=== PATIENT | female | born 1960 | race Caucasian/White ===

== ENCOUNTER → 2018-02-25 08:54 | Outpatient (CLI) | payer MEDICARE, OTHER, SELFPAY ==
[2018-02-25 09:09] LABS: Absolute Lymphocyte Count 2.48 X10^3/ul (0.83-4.51); Absolute Neutrophil Count 5.1 X10^3/uL (2.0-7.7); Basophil# 0.02 X10^3/uL; Basophil% 0.2 % (0-1); Eosinophils% 1.2 % (0-5); Hematocrit 39.1 % (37-47); Hemoglobin 12.2 g/dl (12.0-15.0); Lymphocyte # 2.48 X10^3/ul (4.0); Lymphocyte % 29.6 % (19-41); Mean Corp Hgb Conc 31.2 g/gl (32-36); Mean Corpuscular Hgb 24.3 pg (27.0-32.0); Mean Corpuscular Volume 77.7 fL (81-99); Mean Platelet Vol. 9.9 fl (6.2-12.0); Monocyte# 0.63 X10^3/uL; Monocyte% 7.5 % (0-10); Neutrophil # 5.14 X10^3/uL (2.7-7.7); Neutrophil % 61.4 % (47-70); Platelet Count 261 K/mm3 (150-450); RBC Distribution Width SD 45.2 fl (35.1-43.9); Red Blood Count 5.03 M/mm3 (4.2-5.4); White Blood Count 8.4 K/mm3 (4.4-11.0)
--- NOTE | 2018-02-25 09:12 | CT_ITS ---
STUDY: CT ABDOMEN AND PELVIS WITHOUT CONTRAST REASON FOR EXAM: Female, 57 years old. Pain. RADIATION DOSAGE (If Supplied By Facility): CTDIvol = ( 13.73 ) mGy, DLP = ( 737.25 ) mGycm TECHNIQUE: Transaxial images were obtained from the dome of the diaphragm to the symphysis pubis without oral contrast, and without intravenous contrast. Sagittal and coronal images were reconstructed. Individualized dose optimization techniques were used for this CT. COMPARISON: None. FINDINGS: The visualized lung bases are unremarkable. The visualized portions of the heart are within normal limits. There is decreased attenuation of the liver consistent with steatosis. Normal gallbladder and extrahepatic biliary system. Normal spleen. Normal pancreas. Normal bilateral adrenal glands. Normal right kidney. Normal left kidney. Evaluation of the GI tract is limited by absence of oral contrast. Cannot exclude stomach wall thickening. No dilated loops of bowel or evidence for obstruction. Cannot exclude segmental thickening of the pereyra of the small or large bowel. Cannot exclude enteritis or colitis. Moderate diffuse fecal retention. Appendix within normal limits. Normal abdominal aorta. There is an IVC filter in place. Normal retroperitoneum. Normal urinary bladder. There is absence of the uterus consistent with a prior hysterectomy. There is a small umbilical hernia containing fat. Previously repaired right inguinal hernia and ventral hernia with mesh. No recurrent hernias seen in these areas. Normal osseous structures. CT/Abdomen/Pelvis without Cont IMPRESSION: There are no acute abnormalities seen. Electronically Signed: Manish Nassar MD at 10:30 EDT , Service support ,
[2018-02-25 09:13] LABS: POSITIVE COUNT NO; POSITIVE DIFFERENTIAL NO; POSITIVE MORPHOLOGY NO
[2018-02-25 09:26] LABS: AST(SGOT) 30 U/L (15-37); Alanine Aminotransfer ALT/SGPT 40 U/L (13-56); Albumin, Serum 3.8 g/dL (3.2-5.0); Alkaline Phosphatase 133 U/L (45-117); Anion Gap 10 (5-15); BUN 10 mg/dL (7-18); BUN/Creat Ratio 19.9 RATIO (10-20); CRP 6.57 mg/L (0.0-3.0); Calcium,Total 8.7 mg/dL (8.5-10.1); Chloride 103 mmol/L (98-107); EST Glomerular Filtration Rate 135 mL/min (>60); Est Glom Filt Rate - Afr Amer 164 mL/min (>60); Globulin 3.7 g/dL (2.2-4.2); Glucose 128 mg/dL (74-106); Lipase 114 U/L (73-393); Potassium 3.7 mmol/L (3.5-5.1); Protein, Total 7.5 g/dL (6.4-8.2); Sodium Level 141 mmol/L (136-145)
== END ==
PROVIDERS: Family Provider Family Medicine; PCP Family Medicine; Visit Provider Family Medicine
DX: R10.9 Unspecified abdominal pain (principal)
CPT/HCPCS: 36415; 74176; 80053; 83690; 85025; 86140

== ENCOUNTER → 2018-07-27 11:48 | Outpatient (CLI) | payer MEDICARE, OTHER, SELFPAY ==
[2018-07-27 13:59] LABS: Absolute Lymphocyte Count 2.26 X10^3/ul (0.83-4.51); Absolute Neutrophil Count 3.9 X10^3/uL (2.0-7.7); Basophil# 0.03 X10^3/uL; Basophil% 0.4 % (0-1); Eosinophil# 0.12 X10^3/uL; Eosinophils% 1.7 % (0-5); Hematocrit 40.3 % (37-47); Hemoglobin 12.2 g/dl (12.0-15.0); Lymphocyte # 2.26 X10^3/ul (4.0); Lymphocyte % 32.8 % (19-41); Mean Corp Hgb Conc 30.3 g/gl (32-36); Mean Corpuscular Hgb 24.1 pg (27.0-32.0); Mean Corpuscular Volume 79.5 fL (81-99); Mean Platelet Vol. 10.9 fl (6.2-12.0); Monocyte# 0.59 X10^3/uL; Monocyte% 8.6 % (0-10); Neutrophil # 3.88 X10^3/uL (2.7-7.7); Neutrophil % 56.4 % (47-70); Platelet Count 284 K/mm3 (150-450); RBC Distribution Width CV 17.5 % (11.6-14.6); RBC Distribution Width SD 50.4 fl (35.1-43.9); Red Blood Count 5.07 M/mm3 (4.2-5.4); White Blood Count 6.9 K/mm3 (4.4-11.0)
[2018-07-27 14:08] LABS: POSITIVE COUNT NO; POSITIVE DIFFERENTIAL NO; POSITIVE MORPHOLOGY NO
[2018-07-27 14:18] LABS: Hemoglobin A1c 7.7 % (4.2-6.3)
[2018-07-27 14:22] LABS: Creatinine, Urine (random) < 13.00 mg/dL (NO RANGE EST.); Microalbumin,Random Urine 18.2 mg/L (NO RANGE EST.)
[2018-07-27 14:23] LABS: AST(SGOT) 29 U/L (15-37); Alanine Aminotransfer ALT/SGPT 39 U/L (13-56); Albumin, Serum 3.7 g/dL (3.2-5.0); Alkaline Phosphatase 144 U/L (45-117); Anion Gap 12 (5-15); BUN 8 mg/dL (7-18); BUN/Creat Ratio 15.8 RATIO (10-20); Calcium,Total 8.8 mg/dL (8.5-10.1); Chloride 103 mmol/L (98-107); Creatinine, Serum 0.51 mg/dL (0.55-1.02); EST Glomerular Filtration Rate 134 mL/min (>60); Est Glom Filt Rate - Afr Amer 162 mL/min (>60); Globulin 3.7 g/dL (2.2-4.2); Glucose 150 mg/dL (74-106); Potassium 3.6 mmol/L (3.5-5.1); Protein, Total 7.4 g/dL (6.4-8.2); Sodium Level 143 mmol/L (136-145)
== END ==
PROVIDERS: Family Provider Family Medicine; PCP Family Medicine; Referring Provider Family Medicine; Visit Provider Family Medicine
DX: E11.22 Type 2 diabetes mellitus with diabetic chronic kidney disease (principal); N18.9 Chronic kidney disease, unspecified; R74.0 Nonspecific elevation of levels of transaminase and lactic acid dehydrogenase [LDH]; I66.9 Occlusion and stenosis of unspecified cerebral artery
CPT/HCPCS: 36415; 80053; 82043; 82570; 83036; 84443; 85025

== ENCOUNTER → 2018-07-31 07:31 | Outpatient (CLI) | payer MEDICARE, OTHER, SELFPAY ==
--- NOTE | 2018-07-31 07:37 | BI_ITS ---
MAMMOGRAPHY - BILATERAL SCREENING REASON FOR EXAM: Female, 57 years old. Routine annual screening examination. PERTINENT HISTORY: Non-contributory. TECHNIQUE: Digital bilateral breast brandon (3D mammographic acquisition) in the CC and MLO projections. 2-D mediolateral oblique (MLO) and craniocaudad (CC) views of both breasts were obtained. CAD: Full Field Digital Mammography with Computer Added Detection was performed. COMPARISON: Comparison is made with prior study dated August 12, 2012 and August 01, 2011. FINDINGS: Breast Composition: The breasts are almost entirely fatty. There are no dominant masses or suspicious calcifications. Stable small benign-appearing bilateral axillary lymph nodes. No other significant abnormalities are identified. There has been no significant change since the prior study. BI/SCREENING MAMM (CAD), BILAT IMPRESSION: Stable bilateral screening mammogram. Yearly follow-up mammogram recommended. (A) ASSESSMENT CATEGORY: BIRADS Category 2: Benign. A letter regarding these results will be sent to the patient by the facility within 30 days. Approximately 10% of breast cancers are not detected by mammography. A normal mammogram should not delay biopsy of a clinically suspicious abnormality. [id number] Electronically Signed: Wesley Wetzel MD at 14:23 EST Tel [phone], Service support ,
== END ==
PROVIDERS: Family Provider Family Medicine; PCP Family Medicine; Visit Provider Family Medicine
DX: Z12.31 Encounter for screening mammogram for malignant neoplasm of breast (principal)
CPT/HCPCS: 77063; 77067

== ENCOUNTER 2018-09-24 11:46 | Emergency (ER) | payer MEDICARE, SELFPAY ==
[2018-09-24 11:47] VITALS: BP 142/83; PULSE 75; RESP 18; TEMP 36.6; O2SAT 98; BMI 32.3
--- NOTE | 2018-09-24 12:11 | ED.VISSUMM ---
- ER Visit Summary Date of Service: 09/24/18 Chief Complaint: Back pain History of Present Illness: The patient is a 57 F right lower back pain for the past couple weeks. Symptoms started after swinging a bat with grandkids while in [place]. Saw emergency department at that time. He was given morphine, Toradol, Kenalog. 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 Patient diabetic with sugars controlled in the 90s-120s. Pain worse with movement. Got back a week ago. Has had previous similar symptoms in the past. Was previously gabapentin for fibromyalgia. Currently on MS Contin and breakthrough oxycodone. States symptoms not helping with that. Has tolerated Valium in the past. No pain down the legs. No loss of bowel or bladder control. Physical Examination: General: Alert and oriented ?3, mild distress HEENT: Normocephalic, atraumatic. Moist mucosa membranes Neck: supple, nontender. Cardiovascular: Regular rate and rhythm, no murmurs Respiratory: Normal breath sounds, symmetric, no distress Abdomen: Soft, nontender, nondistended Back: No midline tenderness tender palpation along right flank region, no ecchymosis or rash. Extremities: Nontender, no edema, pulses intact ?4 Neuro: no focal neurological deficits. Test Results: Lumbar spine x-ray: Degenerative changes. Labs: White count 7.6, hemoglobin 11.5, creatinine 0.47, lipase 181, liver enzymes normal. INR 2.8. CT abdomen pelvis: Distended bladder, normal appendix, linear density distal small bowels per radiology. Emergency Department Course and Treatment: Patient initial evaluation history concerns for muscle skeletal strain. She is on warfarin therefore NSAIDs held. History of morphine subcu along with Valium, x-ray ordered for baseline due to persistent symptoms for 2 weeks. No degenerative changes. Upon returning from x-ray she states symptoms worsen notes from the back to the abdomen she has slight right lower quadrant tenderness. With her being on warfarin with sudden onset of symptoms further workup with labs and image studies. Given additional IV morphine. Symptoms improved. Labs were stable INR 2.8. Results of CT scan notes a normal appendix, distended bladder however she urinated after CT and felt symptoms improved. There is a linear density in small bowels per radiology, she did receive oral Valium in the department. She is able to ambulate in the department by nursing to the restroom with no difficulties. She is able to get herself up out of bed. I did speak with patient's PCP on her arrival, aware of her condition, he is treating her pain in the interim until she is established with pain management. She is on MS Contin and oxycodone. We will add Valium to her regimen, will try a Medrol Dosepak which she is tolerated in the past, she will monitor her blood sugars. She will follow-up as an outpatient. Treatment Plan: [] Disposition: Discharge Impression: 1. Acute lumbar strain 2. Nonspecific abdominal pain This note was generated with [employer] dictation software. It may contain incorrect words, spelling, and punctuation that were not noted in review of the chart prior to signing ED Disposition - Plan for ED Patient: Disposition: Home or Assisted Living Chief Complaint: Back Diagnosis: Lumbar strain, Abdominal pain Instructions: ED Sprain Strain Lumbar, Abdominal Pain Prescriptions: Diazepam [Valium] 5 mg PO Q8 PRN #12 tablet PRN Reason: Muscle Spasm MethylPREDNISolone DosePak [Medrol DosePak] 4 mg PO UD #1 box Referrals: Jermaine Miranda MD [Primary Care Provider] - 3-5 Days
[2018-09-24] MEDS: morphine 10 MG/ML Syringe SC (12:20)
[2018-09-24] MEDS: diazePAM 5 MG Tablet PO (12:20)
--- NOTE | 2018-09-24 12:35 | RAD_ITS ---
STUDY: X-RAY - LUMBAR SPINE REASON FOR EXAM: Female, 57 years old. Low back pain TECHNIQUE: 3 view(s) of the lumbar spine were obtained. COMPARISON: None FINDINGS: Normal lumbar lordosis. There is no substantial scoliosis. There is a normal alignment of the vertebrae. There is multilevel endplate spondylosis of the lumbar vertebrae. There is multi-level degenerative disc disease with multi-level disc space narrowing. There is no demonstrated fracture. IVC filter is noted The soft tissue structures are unremarkable. RAD/Lumbar Spine 2 or 3 Views IMPRESSION: Mild degenerative changes. No acute findings. Electronically Signed: Rohan Dawson DO at 13:15 EST Tel , Service support ,
[2018-09-24 13:01] LABS: Bedside Glucose 193 mg/dL (70-110)
--- NOTE | 2018-09-24 13:14 | ED.RN ---
SPOKE WITH MD REGARDING PAIN, NO NEW ORDERS GIVEN.
--- NOTE | 2018-09-24 13:21 | CT_ITS ---
STUDY: CT ABDOMEN AND PELVIS WITHOUT CONTRAST REASON FOR EXAM: Female, 57 years old. Back pain and abdominal pain RADIATION DOSAGE (If Supplied By Facility): CTDIvol = ( 14.51 ) mGy, DLP = ( 739.76 ) mGycm TECHNIQUE: Transaxial images were obtained from the dome of the diaphragm to the symphysis pubis without oral contrast, and without intravenous contrast. Sagittal and coronal images were reconstructed. Individualized dose optimization techniques were used for this CT. COMPARISON: 02/25/2018 FINDINGS: The visualized lung bases are unremarkable. The visualized portions of the heart are within normal limits. There is hepatomegaly with diffuse hepatic enlargement. Normal gallbladder and extrahepatic biliary system. Normal spleen. There is diffuse atrophy of the pancreas. Normal bilateral adrenal glands. There is mild bilateral pelviectasis; right greater than left. There is no evidence of stones. There is prominent distention of the bladder. Possible urinary retention. Kidneys are otherwise within normal limits. Normal visualized stomach. Normal small intestine. Normal colon. The appendix is visualized and appears normal. Within the distal loops of small bowel, there is a linear mildly hyperdense object measuring 1.3 cm. Unsure if this represents a tablet the patient has ingested versus foreign body. Normal abdominal aorta. There is an IVC filter in place. Normal retroperitoneum. Normal urinary bladder. There is absence of the uterus consistent with a prior hysterectomy. Normal abdominal wall. There are diffuse degenerative changes of the visualized lumbar spine. CT/Abdomen/Pelvis without Cont IMPRESSION: Mild bilateral pelviectasis; right greater than left. No evidence of stones in the ureter. No evidence of stones in the bladder. However, the bladder is prominently distended. I service represents urinary retention. Recommend clinical correlation Linear hyperdense object in the distal loops of small bowel. Unsure if this represents an ingested tablet versus foreign body. Recommend clinical correlation. Electronically Signed: Rohan Dawson DO at 14:49 EST Tel , Service support ,
[2018-09-24 13:59] LABS: Absolute Lymphocyte Count 1.25 X10^3/ul (0.83-4.51); Absolute Neutrophil Count 5.7 X10^3/uL (2.0-7.7); Basophil# 0.02 X10^3/uL; Basophil% 0.3 % (0-1); Eosinophil# 0.08 X10^3/uL; Hematocrit 37.4 % (37-47); Hemoglobin 11.5 g/dl (12.0-15.0); Lymphocyte # 1.25 X10^3/ul (4.0); Lymphocyte % 16.4 % (19-41); Mean Corp Hgb Conc 30.7 g/gl (32-36); Mean Corpuscular Hgb 24.2 pg (27.0-32.0); Mean Corpuscular Volume 78.6 fL (81-99); Monocyte# 0.54 X10^3/uL; Monocyte% 7.1 % (0-10); Neutrophil # 5.73 X10^3/uL (2.7-7.7); Neutrophil % 75.1 % (47-70); POSITIVE COUNT NO; POSITIVE DIFFERENTIAL NO; POSITIVE MORPHOLOGY NO; Platelet Count 224 K/mm3 (150-450); RBC Distribution Width CV 15.9 % (11.6-14.6); RBC Distribution Width SD 45.3 fl (35.1-43.9); Red Blood Count 4.76 M/mm3 (4.2-5.4); White Blood Count 7.6 K/mm3 (4.4-11.0)
[2018-09-24] MEDS: Morphine 4 MG/ML Syringe IV (13:59)
[2018-09-24] MEDS: 0.9% Normal Saline 1,000 ML 125 ML IV (13:59)
[2018-09-24] MEDS: Ondansetron 4 MG/2 ML Vial IV (14:00)
[2018-09-24 14:05] LABS: International Normalized Ratio 2.8; Prothrombin Time (Protime)PT. 29.3 SECONDS (11.7-14.9)
[2018-09-24 14:06] LABS: Partial Thromboplast Time 47.6 Seconds (24.1-36.2)
[2018-09-24 14:15] LABS: ALB/GLOB Ratio 0.9 RATIO (0.9-2.4); AST(SGOT) 19 U/L (15-37); Alanine Aminotransfer ALT/SGPT 31 U/L (13-56); Albumin, Serum 3.3 g/dL (3.2-5.0); Alkaline Phosphatase 138 U/L (45-117); Anion Gap 10 (5-15); BUN 9 mg/dL (7-18); Calcium,Total 9.1 mg/dL (8.5-10.1); Chloride 106 mmol/L (98-107); Creatinine, Serum 0.47 mg/dL (0.55-1.02); EST Glomerular Filtration Rate 144 mL/min (>60); Est Glom Filt Rate - Afr Amer 175 mL/min (>60); Estimated Creatinine Clearance 126.61 ml/min; Globulin 3.8 g/dL (2.2-4.2); Glucose 170 mg/dL (74-106); Lipase 181 U/L (73-393); Potassium 3.7 mmol/L (3.5-5.1); Protein, Total 7.1 g/dL (6.4-8.2); Sodium Level 144 mmol/L (136-145)
[2018-09-24 15:18] VITALS: BP 153/90; PULSE 65; RESP 16; O2SAT 94
== END 2018-09-24 15:19 | disposition home or self-care (01) ==
PROVIDERS: Emergency Provider Emergency Medicine; Family Provider Family Medicine; PCP Family Medicine
DX: S39.012D Strain of muscle, fascia and tendon of lower back, subsequent encounter (principal); R10.31 Right lower quadrant pain; E11.9 Type 2 diabetes mellitus without complications; E72.12 Methylenetetrahydrofolate reductase deficiency; Z86.711 Personal history of pulmonary embolism; Z79.01 Long term (current) use of anticoagulants; Z79.891 Long term (current) use of opiate analgesic; X50.0XXD Overexertion from strenuous movement or load, subsequent encounter
CPT/HCPCS: 72100; 74176; 80053; 82962; 83690; 85025; 85610; 85730; 96361; 96372; 96374; 96375; 99284; J7030; A4216; J2405

== ENCOUNTER → 2018-11-04 11:49 | Outpatient (CLI) | payer MEDICARE, SELFPAY ==
[2018-11-04 14:15] LABS: Prothrombin Time (Protime)PT. 13.6 SECONDS (11.7-14.9)
[2018-11-04 14:28] LABS: Hemoglobin A1c 7.8 % (4.2-6.3)
[2018-11-04 14:32] LABS: Vitamin D,25 Hydroxy 22.1 ng/mL (29.95-100.01)
[2018-11-04 14:33] LABS: ALB/GLOB Ratio 1.1 RATIO (0.9-2.4); AST(SGOT) 23 U/L (15-37); Alanine Aminotransfer ALT/SGPT 30 U/L (13-56); Albumin, Serum 3.9 g/dL (3.2-5.0); Alkaline Phosphatase 119 U/L (45-117); Anion Gap 12 (5-15); BUN 8 mg/dL (7-18); BUN/Creat Ratio 15.4 RATIO (10-20); Calcium,Total 9.4 mg/dL (8.5-10.1); Chloride 107 mmol/L (98-107); Creatinine, Serum 0.52 mg/dL (0.55-1.02); EST Glomerular Filtration Rate 129 mL/min (>60); Est Glom Filt Rate - Afr Amer 157 mL/min (>60); Globulin 3.6 g/dL (2.2-4.2); Glucose 135 mg/dL (74-106); Potassium 3.8 mmol/L (3.5-5.1); Protein, Total 7.5 g/dL (6.4-8.2); Sodium Level 145 mmol/L (136-145)
[2018-11-04 14:49] LABS: PTHIN 28.9 pg/mL (18.4-80.1)
== END ==
PROVIDERS: Family Provider Family Medicine; PCP Family Medicine; Referring Provider Family Medicine; Visit Provider Family Medicine
DX: R74.8 Abnormal levels of other serum enzymes (principal); E11.22 Type 2 diabetes mellitus with diabetic chronic kidney disease; N18.9 Chronic kidney disease, unspecified; I66.9 Occlusion and stenosis of unspecified cerebral artery
CPT/HCPCS: 80053; 82306; 83036; 83970; 85610

== ENCOUNTER → 2018-11-19 12:03 | Outpatient (CLI) | payer MEDICARE, SELFPAY ==
--- NOTE | 2018-11-19 12:07 | RAD_ITS ---
STUDY: X-RAY - THORACIC SPINE REASON FOR EXAM: Female, 58 years old. No recent injury. Pain in the cervical and thoracic spine. Frequent headaches. TECHNIQUE: Frontal and lateral view(s) of the thoracic spine were obtained. COMPARISON: None. FINDINGS: Mild osteopenia. Slight scoliosis of the thoracic spine, mild dextroscoliotic curvature, Mcnally angle approximately 2 degrees. Normal kyphosis. Normal vertebral body height and alignment. No significant disc degenerative features. Evaluated ribs unremarkable. Clear lungs, normal cardiac mediastinal silhouette. Cholecystectomy. RAD/Thoracic Spine 3 Views IMPRESSION: Slight scoliosis. No significant spondylosis. Electronically Signed: Mark Lemon MD at 18:08 EST Tel , Service support ,
--- NOTE | 2018-11-19 12:10 | RAD_ITS ---
STUDY: X-RAY - CERVICAL SPINE REASON FOR EXAM: Female, 58 years old. No recent injury. Pain in the cervical and thoracic spine. Frequent headaches. TECHNIQUE: view(s) of the cervical spine were obtained. COMPARISON: None FINDINGS: Normal anterior atlantoaxial articulation. Normal odontoid process. Normal cervical lordosis. Normal vertebral bodies and endplates. Normal disc space heights. Normal visualized intervertebral neuroforamina. The soft tissue structures are unremarkable. RAD/Cerv Spine 4 or 5 Views IMPRESSION: Normal x-ray examination of the visualized cervical spine. Electronically Signed: Mark Lemon MD at 18:09 EST Tel , Service support ,
== END ==
PROVIDERS: Family Provider Family Medicine; PCP Family Medicine; Referring Provider Nurse Practitioner Family; Visit Provider Nurse Practitioner Family
DX: M54.2 Cervicalgia (principal); M54.6 Pain in thoracic spine
CPT/HCPCS: 72050; 72072

== ENCOUNTER → 2019-02-09 | Outpatient (CLI) | payer MEDICARE, SELFPAY ==
--- NOTE | 2019-02-09 15:18 | RAD_ITS ---
STUDY: X-RAY - RIGHT RADIUS AND ULNA REASON FOR EXAM: Female, 58 years old. Pain x6 months TECHNIQUE: 2 view(s) of the forearm. COMPARISON: None. FINDINGS: There is no demonstrated soft tissue swelling. Normal visualized radius. Normal visualized ulna. RAD/Forearm 2 Views IMPRESSION: Normal x-ray examination of the radius and ulna. Electronically Signed: Bud Watkins MD at 15:31 EDT , Service support ,
== END | disposition home or self-care (01) ==
LOC: MTRAD 15:15
PROVIDERS: Family Provider Family Medicine; PCP Family Medicine; Referring Provider Family Medicine; Visit Provider Family Medicine
DX: M89.8X3 Other specified disorders of bone, forearm (principal)
CPT/HCPCS: 73090

== ENCOUNTER → 2019-02-24 | Outpatient (CLI) | payer MEDICARE, SELFPAY ==
--- NOTE | 2019-02-24 09:48 | CT_ITS ---
STUDY: CT BRAIN WITHOUT CONTRAST REASON FOR EXAM: Female, 58 years old. Positive Romberg test. RADIATION DOSAGE (If Supplied By Facility): CTDIvol = ( 60.81 ) mGy, DLP = ( 1089.89 ) mGycm TECHNIQUE: Transaxial CT imaging of the brain was performed without administration of intravenous contrast material. Individualized dose optimization techniques were used for this CT. COMPARISON: Comparison is made with prior study dated January 12, 2015. FINDINGS: Normal soft tissue structures. Normal calvarium. There is mild cerebral atrophy with widening of the extra-axial spaces and ventricular dilatation. Normal white matter tracts of the cerebral hemispheres. Normal basal ganglia and thalami. Normal brainstem. Normal cerebellum. There is no intracranial hemorrhage. There are no findings of an acute ischemic infarction. Normal visualized paranasal sinuses. CT/Brain/Head without Contrast IMPRESSION: Mild involutional changes of the brain. Electronically Signed: Wesley Wetzel, at 10:24 EDT , Service support ,
== END | disposition home or self-care (01) ==
PROVIDERS: Family Provider Family Medicine; PCP Family Medicine; Referring Provider Family Medicine; Visit Provider Family Medicine
DX: R29.818 Other symptoms and signs involving the nervous system (principal)
CPT/HCPCS: 70450

== ENCOUNTER → 2019-03-01 | Outpatient (CLI) | payer MEDICARE, SELFPAY ==
[2019-03-01 14:22] LABS: Absolute Lymphocyte Count 1.94 X10^3/ul (0.83-4.51); Absolute Neutrophil Count 3.8 X10^3/uL (2.0-7.7); Basophil# 0.02 X10^3/uL; Basophil% 0.3 % (0-1); Eosinophils% 1.6 % (0-5); Hematocrit 39.1 % (37-47); Lymphocyte # 1.94 X10^3/ul (4.0); Lymphocyte % 30.6 % (19-41); Mean Corp Hgb Conc 30.7 g/gl (32-36); Mean Corpuscular Hgb 23.5 pg (27.0-32.0); Mean Corpuscular Volume 76.5 fL (81-99); Monocyte# 0.51 X10^3/uL; Neutrophil # 3.76 X10^3/uL (2.7-7.7); Neutrophil % 59.2 % (47-70); Platelet Count 270 K/mm3 (150-450); RBC Distribution Width CV 16.7 % (11.6-14.6); RBC Distribution Width SD 45.2 fl (35.1-43.9); Red Blood Count 5.11 M/mm3 (4.2-5.4); White Blood Count 6.4 K/mm3 (4.4-11.0)
[2019-03-01 14:37] LABS: POSITIVE COUNT NO; POSITIVE DIFFERENTIAL NO; POSITIVE MORPHOLOGY NO
== END | disposition home or self-care (01) ==
LOC: MTLAB 12:35
PROVIDERS: Family Provider Family Medicine; PCP Family Medicine; Referring Provider Family Medicine; Visit Provider Family Medicine
DX: I10 Essential (primary) hypertension (principal); T14.8XXA Other injury of unspecified body region, initial encounter; W57.XXXA Bitten or stung by nonvenomous insect and other nonvenomous arthropods, initial encounter
CPT/HCPCS: 36415; 85025; 86617

== ENCOUNTER → 2019-03-02 | Outpatient (CLI) | payer MEDICARE, SELFPAY ==
[2019-03-02 12:21] LABS: International Normalized Ratio 1.1; Prothrombin Time (Protime)PT. 13.8 SECONDS (11.7-14.9)
== END | disposition home or self-care (01) ==
PROVIDERS: Family Provider Family Medicine; PCP Family Medicine; Referring Provider Anesthesiology Pain Medicine; Visit Provider Anesthesiology Pain Medicine
DX: Z01.812 Encounter for preprocedural laboratory examination (principal); Z79.01 Long term (current) use of anticoagulants
CPT/HCPCS: 36415; 85610

== ENCOUNTER → 2019-08-09 09:31 | Outpatient (CLI) | payer MEDICARE, SELFPAY ==
[2019-08-09 10:55] LABS: Hematocrit 42.4 % (37-47); Hemoglobin 13.2 g/dL (12.0-15.0); Mean Corp Hgb Conc 31.1 g/dL (32-36); Mean Corpuscular Hgb 25.3 pg (27.0-32.0); Mean Corpuscular Volume 81.4 fL (81-99); Mean Platelet Vol. 10.4 fl (6.2-12.0); Platelet Count 260 K/mm3 (150-450); RBC Distribution Width CV 16.9 % (11.6-14.6); RBC Distribution Width SD 49.2 fl (35.1-43.9); Red Blood Count 5.21 M/mm3 (4.2-5.4); White Blood Count 5.5 K/mm3 (4.4-11.0)
[2019-08-09 11:10] LABS: Hemoglobin A1c 6.6 % (4.2-6.3); Microalbumin:Creatinine Ratio 60.8 mg/g CRE (<30 mg/g CRE)
[2019-08-09 11:29] LABS: ALB/GLOB Ratio 1.2 RATIO (0.9-2.4); AST(SGOT) 20 U/L (15-37); Alanine Aminotransfer ALT/SGPT 25 U/L (13-56); Alkaline Phosphatase 105 U/L (45-117); Anion Gap 5 (5-15); BUN 7 mg/dL (7-18); BUN/Creat Ratio 15.5 RATIO (10-20); Calcium,Total 9.4 mg/dL (8.5-10.1); Chloride 107 mmol/L (98-107); Creatinine, Serum 0.45 mg/dL (0.55-1.02); EST Glomerular Filtration Rate 152 mL/min (>60); Est Glom Filt Rate - Afr Amer 184 mL/min (>60); Globulin 3.3 g/dL (2.2-4.2); Glucose 124 mg/dL (74-106); Protein, Total 7.3 g/dL (6.4-8.2); Sodium Level 142 mmol/L (136-145); Thyroid Stim Hormone (TSH) 1.04 uIU/mL (0.358-3.74)
== END ==
PROVIDERS: Family Provider Family Medicine; PCP Family Medicine; Referring Provider Family Medicine; Visit Provider Family Medicine
DX: E11.22 Type 2 diabetes mellitus with diabetic chronic kidney disease (principal)
CPT/HCPCS: 36415; 80053; 82043; 82570; 83036; 84443; 85027

== ENCOUNTER → 2019-09-02 09:35 | Outpatient (CLI) | payer MEDICARE, SELFPAY ==
--- NOTE | 2019-09-02 09:38 | US_ITS ---
STUDY: ABDOMINAL ULTRASOUND - RIGHT UPPER QUADRANT REASON FOR VISIT: Female, 58 years old NAUSEA/ DM TYPE 2 TECHNIQUE: Ultrasound evaluation of the right upper quadrant was performed with real-time and static hernandez-scale imaging. TECHNICAL QUALITY: Adequate. COMPARISON: None. FINDINGS: Liver: The liver measures 16.5 cm. There is normal echogenicity of the liver. The bile ducts are within normal limits. There is hepatic color flow. The direction of portal flow is hepatopetal. There is no demonstrated mass lesion. Gallbladder: Normal distended gallbladder. The gallbladder wall measures 3.0 mm. There is a negative sonographic Cisse''s sign. There is no pericholecystic fluid. There are no gallstones. Common Bile Duct (C.B.D.): The common bile duct measures 5.0 mm. Pancreas: Normal size of the head, body of the pancreas. The tail portion is obscured due to overlying bowel gas. There is normal echogenicity of the pancreas. There is no demonstrated pancreatic mass or cyst. Right Kidney: Normal size of the right kidney. The right kidney measures 11.6 cm x 5.3 cm x 4.5 cm. Normal renal cortex. The right cortex measures 1.5 cm. There is no demonstrated renal mass or cyst. There is no right hydronephrosis. US/Abdomen Limited IMPRESSION: Normal right upper quadrant ultrasound examination. Electronically Signed: Wesley Wetzel, at 15:11 EST , Service support ,
== END ==
PROVIDERS: Family Provider Family Medicine; PCP Family Medicine; Referring Provider Internal Medicine Gastroenterology; Visit Provider Internal Medicine Gastroenterology
DX: E11.9 Type 2 diabetes mellitus without complications (principal); R11.0 Nausea
CPT/HCPCS: 76705

== ENCOUNTER → 2020-02-17 | Outpatient (CLI) | payer MEDICARE, SELFPAY ==
[2020-02-17 12:31] LABS: Absolute Lymphocyte Count 1.39 X10^3/uL (0.83-4.51); Absolute Neutrophil Count 3.4 X10^3/uL (2.0-7.7); Basophil# 0.02 X10^3/uL; Basophil% 0.4 % (0-1); Eosinophils% 1.9 % (0-5); Hematocrit 40.7 % (37-47); Lymphocyte # 1.39 X10^3/ul (4.0); Lymphocyte % 26.2 % (19-41); Mean Corp Hgb Conc 31.9 g/dL (32-36); Mean Corpuscular Hgb 27.7 pg (27.0-32.0); Mean Corpuscular Volume 86.6 fL (81-99); Mean Platelet Vol. 11.1 fl (6.2-12.0); Monocyte# 0.36 X10^3/uL; Monocyte% 6.8 % (0-10); NRBC Flagged by Analyzer 0 % (0-5); Neutrophil # 3.42 X10^3/uL (2.7-7.7); Neutrophil % 64.5 % (47-70); Platelet Count 276 K/mm3 (150-450); RBC Distribution Width SD 44.3 fl (35.1-43.9); White Blood Count 5.3 K/mm3 (4.4-11.0)
[2020-02-17 13:14] LABS: Microalbumin,Random Urine 13.1 mg/L (NO RANGE EST.); Microalbumin:Creatinine Ratio 47.1 mg/g CRE (<30 mg/g CRE)
[2020-02-17 13:22] LABS: ALB/GLOB Ratio 1.2 RATIO (0.9-2.4); AST(SGOT) 20 U/L (15-37); Alanine Aminotransfer ALT/SGPT 25 U/L (13-56); Albumin, Serum 3.9 g/dL (3.2-5.0); Alkaline Phosphatase 132 U/L (45-117); Anion Gap 7 (5-15); BUN 11 mg/dL (7-18); BUN/Creat Ratio 23.7 RATIO (10-20); Calcium,Total 9.2 mg/dL (8.5-10.1); Chloride 104 mmol/L (98-107); Cholesterol 154 mg/dL (200); Creatinine, Serum 0.46 mg/dL (0.55-1.02); EST Glomerular Filtration Rate 147 mL/min (>60); Est Glom Filt Rate - Afr Amer 178 mL/min (>60); Globulin 3.3 g/dL (2.2-4.2); Glucose 124 mg/dL (74-106); High Density Lipoprotein 50 mg/dL; Lipase 818 U/L (73-393); Potassium 3.6 mmol/L (3.5-5.1); Protein, Total 7.2 g/dL (6.4-8.2); Sodium Level 140 mmol/L (136-145); Triglycerides 97 mg/dL; Very Low Density Lipoprotein 19 mg/dL (5-40)
== END | disposition home or self-care (01) ==
LOC: MTLAB 09:48
PROVIDERS: Family Provider Family Medicine; PCP Family Medicine; Referring Provider Family Medicine; Visit Provider Family Medicine
DX: M06.9 Rheumatoid arthritis, unspecified (principal); E11.22 Type 2 diabetes mellitus with diabetic chronic kidney disease; N18.9 Chronic kidney disease, unspecified; K76.0 Fatty (change of) liver, not elsewhere classified
CPT/HCPCS: 36415; 80053; 80061; 82043; 82570; 83690; 85025

== ENCOUNTER → 2020-02-23 14:44 | Outpatient (CLI) | payer MEDICARE, SELFPAY ==
[2020-02-23 17:43] LABS: Absolute Lymphocyte Count 1.76 X10^3/uL (0.83-4.51); Absolute Neutrophil Count 3.4 X10^3/uL (2.0-7.7); Basophil# 0.03 X10^3/uL; Basophil% 0.5 % (0-1); Eosinophils% 1.7 % (0-5); Hematocrit 40.6 % (37-47); Hemoglobin 12.7 g/dL (12.0-15.0); Lymphocyte # 1.76 X10^3/ul (4.0); Lymphocyte % 30.7 % (19-41); Mean Corp Hgb Conc 31.3 g/dL (32-36); Mean Corpuscular Hgb 27.7 pg (27.0-32.0); Mean Corpuscular Volume 88.5 fL (81-99); Monocyte# 0.43 X10^3/uL; Monocyte% 7.5 % (0-10); NRBC Flagged by Analyzer 0 % (0-5); Neutrophil % 59.4 % (47-70); Platelet Count 253 K/mm3 (150-450); RBC Distribution Width CV 14.3 % (11.6-14.6); RBC Distribution Width SD 45.6 fl (35.1-43.9); Red Blood Count 4.59 M/mm3 (4.2-5.4); White Blood Count 5.7 K/mm3 (4.4-11.0)
[2020-02-23 18:03] LABS: ALB/GLOB Ratio 1.1 RATIO (0.9-2.4); AST(SGOT) 23 U/L (15-37); Alanine Aminotransfer ALT/SGPT 28 U/L (13-56); Alkaline Phosphatase 130 U/L (45-117); Anion Gap 8 (5-15); BUN 10 mg/dL (7-18); BUN/Creat Ratio 21.9 RATIO (10-20); CRP, High Sensitivity Cardiac 2.37 mg/L; Calcium,Total 9.5 mg/dL (8.5-10.1); Chloride 101 mmol/L (98-107); Creatinine, Serum 0.46 mg/dL (0.55-1.02); EST Glomerular Filtration Rate 150 mL/min (>60); Est Glom Filt Rate - Afr Amer 182 mL/min (>60); Globulin 3.5 g/dL (2.2-4.2); Glucose 102 mg/dL (74-106); Lipase 90 U/L (73-393); Potassium 3.6 mmol/L (3.5-5.1); Protein, Total 7.5 g/dL (6.4-8.2); Sodium Level 138 mmol/L (136-145)
== END ==
PROVIDERS: PCP Family Medicine; Referring Provider Family Medicine; Visit Provider Family Medicine
DX: K85.90 Acute pancreatitis without necrosis or infection, unspecified (principal); E78.00 Pure hypercholesterolemia, unspecified
CPT/HCPCS: 36415; 80053; 83690; 85025; 86141

== ENCOUNTER → 2020-02-25 08:37 | Outpatient (CLI) | payer MEDICARE, SELFPAY ==
--- NOTE | 2020-02-25 08:49 | US_ITS ---
STUDY: ABDOMINAL ULTRASOUND REASON FOR EXAM: Female, 59 years old. Elevated lipase TECHNIQUE: Transabdominal ultrasound was performed with real-time and static hernandez scale imaging. TECHNICAL QUALITY: Adequate. COMPARISON: None. FINDINGS: Liver: The liver measures 14.5 cm. There is fatty echogenicity of the liver. The bile ducts are within normal limits. There is hepatic color flow. The direction of portal flow is hepatopetal. There is no demonstrated mass lesion. Gallbladder: Normal distended gallbladder. The gallbladder wall measures 1.6 mm. There is a negative sonographic Cisse''s sign. There is no pericholecystic fluid. There are no gallstones. Common Bile Duct (C.B.D.): The common bile duct measures 2.7 mm. Pancreas: Limited visualization of the pancreas. Spleen: Normal size of the spleen. The spleen measures 9.9 cm. Right Kidney: Normal size of the right kidney. The right kidney measures 12.7 x 4.8 x 5.4 cm. Normal renal cortex. The right cortex measures 1.8 cm. There is no demonstrated renal mass or cyst. There is no right hydronephrosis. Left Kidney: Normal size of the left kidney. The left kidney measures 11.6 x 5.0 x 6.0 cm. Normal renal cortex. The left cortex measures 1.7 cm. There is no demonstrated renal mass or cyst. There is no left hydronephrosis. Aorta: The visualized portion is normal. I.V.C.: The IVC is patent. There is no ascites. US/Abdomen Complete IMPRESSION: Fatty liver. Electronically Signed: Matthew Liu DO at 10:14 EDT Tel [phone], Service support ,
== END ==
PROVIDERS: PCP Family Medicine; Referring Provider Family Medicine; Visit Provider Family Medicine
DX: R74.8 Abnormal levels of other serum enzymes (principal)
CPT/HCPCS: 76700

== ENCOUNTER → 2020-04-06 17:00 | Outpatient (CLI) | payer MEDICARE, SELFPAY | PROVIDERS: PCP Family Medicine; Referring Provider Nurse Practitioner Family; Visit Provider Nurse Practitioner Family | DX: Z20.828 Contact with and (suspected) exposure to other viral communicable diseases (principal) ==

== ENCOUNTER → 2020-04-06 | Outpatient (CLI) | payer MEDICARE, SELFPAY | END | disposition home or self-care (01) | LOC: LABSPEC 17:16 | PROVIDERS: PCP Family Medicine; Visit Provider Nurse Practitioner Family | DX: Z20.828 Contact with and (suspected) exposure to other viral communicable diseases (principal) | CPT/HCPCS: 87635; U0003 ==

== ENCOUNTER → 2020-05-09 10:47 | Outpatient (CLI) | payer MEDICARE, SELFPAY ==
[2020-05-09 12:30] LABS: Absolute Neutrophil Count 3.3 X10^3/uL (2.0-7.7); Basophil# 0.02 X10^3/uL; Basophil% 0.4 % (0-1); Eosinophil# 0.13 X10^3/uL; Eosinophils% 2.5 % (0-5); Hematocrit 40.5 % (37-47); Hemoglobin 12.8 g/dL (12.0-15.0); Lymphocyte % 28.3 % (19-41); Mean Corp Hgb Conc 31.6 g/dL (32-36); Mean Corpuscular Hgb 27.3 pg (27.0-32.0); Mean Corpuscular Volume 86.4 fL (81-99); Mean Platelet Vol. 10.8 fl (6.2-12.0); Monocyte# 0.39 X10^3/uL; Monocyte% 7.4 % (0-10); NRBC Flagged by Analyzer 0 % (0-5); Neutrophil # 3.26 X10^3/uL (2.7-7.7); Neutrophil % 61.4 % (47-70); Platelet Count 255 K/mm3 (150-450); RBC Distribution Width CV 14.2 % (11.6-14.6); RBC Distribution Width SD 44.5 fl (35.1-43.9); Red Blood Count 4.69 M/mm3 (4.2-5.4); White Blood Count 5.3 K/mm3 (4.4-11.0)
[2020-05-09 12:56] LABS: Hemoglobin A1c 6.7 % (3.8-5.6)
[2020-05-09 13:05] LABS: ALB/GLOB Ratio 1.1 RATIO (0.9-2.4); AST(SGOT) 23 U/L (15-37); Alanine Aminotransfer ALT/SGPT 28 U/L (13-56); Albumin, Serum 3.9 g/dL (3.2-5.0); Alkaline Phosphatase 112 U/L (45-117); Anion Gap 4 (5-15); BUN 7 mg/dL (7-18); Calcium,Total 9.1 mg/dL (8.5-10.1); Chloride 103 mmol/L (98-107); Cholesterol 139 mg/dL (200); EST Glomerular Filtration Rate 135 mL/min (>60); Est Glom Filt Rate - Afr Amer 163 mL/min (>60); Globulin 3.5 g/dL (2.2-4.2); Glucose 132 mg/dL (74-106); High Density Lipoprotein 50 mg/dL; Potassium 3.8 mmol/L (3.5-5.1); Protein, Total 7.4 g/dL (6.4-8.2); Sodium Level 139 mmol/L (136-145); Triglycerides 124 mg/dL; Very Low Density Lipoprotein 25 mg/dL (5-40)
== END ==
PROVIDERS: PCP Family Medicine; Referring Provider Family Medicine; Visit Provider Family Medicine
DX: M06.9 Rheumatoid arthritis, unspecified (principal); E11.22 Type 2 diabetes mellitus with diabetic chronic kidney disease
CPT/HCPCS: 36415; 80053; 80061; 83036; 85025

== ENCOUNTER → 2021-01-30 | Outpatient (CLI) | payer MEDICARE, SELFPAY | END | disposition home or self-care (01) | LOC: LABSPEC 12:59 | PROVIDERS: PCP Family Medicine; Visit Provider Family Medicine | DX: R35.0 Frequency of micturition (principal) | CPT/HCPCS: 87086; 87088 ==

== ENCOUNTER 2021-02-12 11:40 | Emergency (ER) | payer MEDICARE, SELFPAY ==
[2021-02-12 11:42] VITALS: BP 128/78; PULSE 62; RESP 16; TEMP 36.8; O2SAT 100; BMI 25.2
--- NOTE | 2021-02-12 12:12 | CT_ITS ---
STUDY: CT ABDOMEN AND PELVIS WITH CONTRAST REASON FOR EXAM: Female, 60 years old. abdominal pain -- IV PO Contrast RADIATION DOSAGE (If Supplied By Facility): CTDIvol = ( 9.60 ) mGy, DLP = ( 659.91 ) mGycm TECHNIQUE: Transaxial images were obtained from the dome of the diaphragm to the symphysis pubis without oral contrast. Oral and amp; IV Gastrografin and amp; 100mL [id number]-300 was administered. Sagittal and coronal images were reconstructed. Individualized dose optimization techniques were used for this CT. COMPARISON: 09/24/2018 FINDINGS: The visualized lung bases are unremarkable. The visualized portions of the heart are within normal limits. Normal liver. Normal gallbladder and extrahepatic biliary system. Normal spleen. Normal pancreas. Normal bilateral adrenal glands. Normal right kidney. Normal left kidney. Normal visualized stomach. Normal small intestine. Normal colon. The appendix is visualized and appears normal. Normal abdominal aorta. There is an IVC filter in place. Normal retroperitoneum. Normal urinary bladder. Status post repair of hernia the midline in the anterior abdominal wall in the pelvis with mesh. No residual recurrent hernia. Mild levoscoliosis of the lumbar spine with degenerative disc disease. CT/Abdomen/Pelvis WITH Contrast IMPRESSION: No acute abnormality. Electronically Signed: Mark George MD at 15:07 EDT Tel , Service support ,
--- NOTE | 2021-02-12 12:14 | ED.VIS.GI ---
HPI HPI - GI History of Present Illness Chief Complaint: Abd Pain Detail of Chief Complaint: Abdominal pain that started 2 to 3 days ago. Informant: patient Narrative Narrative: Patient had some mild abdominal discomfort over the last 2 to 3 days. The pain became severe and excruciating this morning. She did have 1 one-point pain radiating from her left upper quadrant to her back. She has had some mild nausea but no vomiting. She denies any fevers. She denies urinary symptoms. Patient has had prior hysterectomy and hernia repair with mesh. Patient denies any blood in her stool or black tarry stool. Patient states the pain is worse with movement. [facility] Medical History (Updated 02/12/21 @ 15:[address] Katty Bonilla, DO) Abdominal hernia Diabetes type 2, controlled MTHFR (methylene THF reductase) deficiency and homocystinuria JONI (obstructive sleep apnea) Osteoarthritis Rheumatoid arthritis Rotator cuff arthropathy of left shoulder Home Medications amlodipine 10 mg PO DAILY 04/25/14 [History Last Taken Unknown] calcium carbonate [Oyster Shell Calcium 500] 500 mg PO DAILY@0800 04/25/14 [History Last Taken Unknown] potassium 99 mg PO DAILY 04/25/14 [History Last Taken Unknown] warfarin [Jantoven] 4 mg PO QODAY 04/25/14 [History Last Taken Unknown] diclofenac sodium [Voltaren] 1 inch TP DAILY PRN 01/12/15 [History Last Taken Unknown] folic acid 5 mg PO DAILY@0800 01/12/15 [History Last Taken Unknown] metformin 500 mg PO BIDCM 01/12/15 [History Last Taken Unknown] omeprazole [Prilosec] 40 mg PO DAILY 01/12/15 [History Last Taken Unknown] topiramate 25 mg PO BID #60 tablet 01/13/15 [Rx Last Taken Unknown] baclofen 10 mg Q8 02/12/21 [History Last Taken Unknown] candesartan 8 mg DAILY 02/12/21 [History Last Taken Unknown] hydrocodone-acetaminophen 1 tab PO Q4H PRN PRN 2 Days #10 tablet 02/12/21 [Rx Last Taken Unknown] montelukast 10 mg DAILY 02/12/21 [History Last Taken Unknown] nitroglycerin 0.4 mg PRN PRN 02/12/21 [History Last Taken Unknown] tramadol 50 mg TID PRN PRN 02/12/21 [History Last Taken Unknown] Allergy/AdvReac Type Severity Reaction Status Date / Time albuterol Allergy Chest Verified 02/12/21 11:41 tightness celecoxib [From Celebrex] Allergy Other Verified 02/12/21 11:41 feathers Allergy Hives Verified 02/12/21 11:41 Surgical History (Updated 02/12/21 @ 12:14 by Angie Bustillo RN) H/O hernia repair History of hysterectomy for benign disease Total knee replacement status Social History Smoking Status: Current some day smoker tobacco type: e-cigarettes ROS ROS ED Constitutional Constitutional ED: Reports systems reviewed and no addt'l complaints, except as documented; Denies body ache(s), change in weight or chills Eyes Eyes: Denies acute decrease in peripheral vision, change in vision, double vision or loss of vision ENT ENT ED: Reports none; Denies ear pain, lip swelling, loss taste/smell, neck pain, otalgia or sore throat Cardiovascular Cardiovascular: Reports none; Denies abdominal pain, chest pain with activity, leg edema, lightheadedness, palpitations, rapid heart rate or syncope Respiratory/Chest Respiratory/Chest: Reports none; Denies change in mental status, dry cough, dyspnea, hemoptysis, shortness of breath at rest or shortness of breath with exertion Gastrointestinal Gastrointestinal: Reports none, abdominal pain and nausea; Denies change in stool character, diarrhea, hematemesis, hematochezia, melena, rectal bleeding or vomiting Genitourinary Genitourinary ED: Reports none; Denies abdominal discomfort, anuria, dysuria, genital pain or polyuria Musculoskeletal Musculoskeletal: Reports none; Denies arthralgias, back pain, difficulty walking, extremity pain, muscle weakness or myalgias Integumentary Reports none; Denies abscess or rash Neurologic Neurologic: Reports none; Denies abnormal gait, confusion, focal weakness, frequent falls, headache(s), loss of vision, numbness, paresthesias, radicular pain, vertigo or weakness Psychiatric Psychiatric: Reports systems reviewed and no addt'l complaints, except as documented and none; Denies behavioral changes, confusion, difficulty concentrating, hallucinations, suicidal ideation, tactile hallucinations or visual hallucinations Endocrine Endocrinology: Denies none, cold intolerance, excessive sweating, fatigue or heat intolerance Hematologic/Lymphatic Hematologic/Lymphatic: Reports none; Denies anemia, easy bleeding or easy bruising Allergic/Immunologic Allergic/Immunologic ED: Denies as per HPI, none, lip swelling, mouth swelling, throat swelling, tongue swelling or hives EXAM Physical Exam Const Vital Signs: 02/12/21 11:42 02/12/21 13:52 02/12/21 15:05 Temperature 98.2 F Temperature Source Temporal Pulse Rate 62 56 L 55 L Respiratory Rate 16 16 16 Blood Pressure 128/78 H 160/94 H 152/90 H Blood Pressure Mean 94 116 110 Pulse Ox 100 98 91 Oxygen Delivery Method Room Air Room Air Room Air Positive well nourished and well developed General Appearance ED: well developed and NAD HEENT Reports TM's clear and moist mucous membranes normocephalic and atraumatic; Negative for trauma or tenderness Tympanic Membrane ED: Yes TM's clear Eyes PERRL and EOMs intact bilaterally General Eye ED: Negative for pale conjunctiva or scleral icterus Neck no lymphadenopathy, supple and no JVD General: Negative for tenderness Chest Wall inspection of chest normal and palpation of chest normal Chest: Negative for tenderness Resp normal respiratory effort and clear to auscultation bilaterally Effort and Inspection: Negative for respiratory distress or pain with movement Auscultation: Negative for rhonchi, wheezes or diminished lung sounds Cardio regular rate, regular rhythm, S1 normal heart sound, S2 normal heart sound and no murmurs Peripheral Pulses: pulses 2+ throughout GI normal to inspection, nondistended, normoactive bowel sounds, soft to palpation and no masses; Negative for non-tender Palpation: tender epigastric and RLQ Back/Spine no CVA tenderness and no thoracic nor lumbar tenderness Extremity normal to inspection General Extremety ED: Negative for edema General Extremity: Negative for edema Neuro oriented x3, CN's II-XII intact bilaterally, no sensory deficits noted and gait normal Sensorium / Orientation: awake, alert, oriented to person, oriented to place and oriented to time Motor Exam: strength 5/5 throughout and strength abnormal Psych mental status grossly normal Skin no rashes or lesions noted and no wounds MDM MDM MDM Narrative Medical decision making narrative: Patient with unremarkable work-up in the emergency department. She was medicated morphine and Zofran and subsequently 1 mg of Dilaudid. At this point she is resting comfortably. She is feeling improved. Etiology of her abdominal pains is unknown. She will receive a prescription for [place] for pain and advised to follow-up with her primary care physician 3 to 5 days. She is to return the ER if worsening pain, fever, vomiting, or condition should worsen anyway. Lab Data Attestation: I reviewed the patient's lab results. Labs: Laboratory Results - last 24 hr 02/12/21 02/12/21 02/12/21 11:55 11:55 13:12 WBC 5.5 RBC 4.84 Hgb 14.1 Hct 43.0 MCV 88.8 MCH 29.1 MCHC 32.8 RDW Std Deviation 44.5 H RDW Coeff of Gilberto 13.8 Plt Count 261 MPV 10.5 Immature Gran % (Auto) 0.200 Neut % (Auto) 54.6 Lymph % (Auto) 33.6 [place] % (Auto) 8.7 Eos % (Auto) 2.7 Baso % (Auto) 0.2 Absolute Neuts (auto) 3.0 Absolute Lymphs (auto) 1.86 Nucleated RBC % 0 Sodium 139 Potassium 3.9 Chloride 104 Carbon Dioxide 29.0 Anion Gap 6 BUN 9 Creatinine 0.53 L Estim Creat Clear Calc 108.31 Est GFR (MDRD) Af Amer 152 Est GFR (MDRD) Non-Af 126 BUN/Creatinine Ratio 17.0 Glucose 120 H Lactic Acid 2.1 H* Calcium 9.5 Total Bilirubin 0.50 AST 18 ALT 24 Alkaline Phosphatase 147 H Total Protein 7.7 Albumin 4.2 Globulin 3.5 Albumin/Globulin Ratio 1.2 Lipase 121 Urine Color Urine Clarity Urine pH Ur Specific [place] Urine Protein Urine Glucose (UA) Urine Ketones Urine Occult Blood Urine Nitrite Urine Bilirubin Urine Urobilinogen Ur Leukocyte Esterase Urine RBC Urine WBC Ur Squamous Epith Cells Urine Bacteria Urine Mucus 02/12/21 13:12 WBC RBC Hgb Hct MCV MCH MCHC RDW Std Deviation RDW Coeff of Gilberto Plt Count MPV Immature Gran % (Auto) Neut % (Auto) Lymph % (Auto) [place] % (Auto) Eos % (Auto) Baso % (Auto) Absolute Neuts (auto) Absolute Lymphs (auto) Nucleated RBC % Sodium Potassium Chloride Carbon Dioxide Anion Gap BUN Creatinine Estim Creat Clear Calc Est GFR (MDRD) Af Amer Est GFR (MDRD) Non-Af BUN/Creatinine Ratio Glucose Lactic Acid Calcium Total Bilirubin AST ALT Alkaline Phosphatase Total Protein Albumin Globulin Albumin/Globulin Ratio Lipase Urine Color Yellow Urine Clarity Clear Urine pH 8.0 Ur Specific Lex[place] 1.010 Urine Protein Negative Urine Glucose (UA) Normal Urine Ketones Negative Urine Occult Blood 25 H Urine Nitrite Negative Urine Bilirubin Negative Urine Urobilinogen Normal Ur Leukocyte Esterase Negative Urine RBC 0 SEEN Urine WBC 0 SEEN Ur Squamous Epith Cells 0 SEEN Urine Bacteria 0 SEEN Urine Mucus 0 SEEN Radiography Diagnostic Testing: Radiology Impression Abdomen/Pelvis CT 02/12/21 12:12 IMPRESSION: No acute abnormality. Electronically Signed: Mark George MD at 15:07 EDT Tel , Service support , Discharge Plan Triage Chief Complaint: Abd Pain ED Provider: Katty Bonilla Dx/Rx/DC Orders Clinical Impression: Abdominal pain Instructions: ED Abdominal Pain Unkn Cause Fem Prescriptions: New hydrocodone-acetaminophen [hydrocodone-acetaminophen] 1 TABLET tablet 1 tab PO Q4H PRN PRN (Reason: Pain) 2 Days Qty: 10 RF: 0 No Action potassium 99 MG tablet 99 mg PO DAILY RF: 0 calcium carbonate [Oyster Shell Calcium 500] 500 MG tablet 500 mg PO DAILY@0800 RF: 0 amlodipine 10 MG tablet 10 mg PO DAILY RF: 0 warfarin [Jantoven] 2 MG tablet 4 mg PO QODAY RF: 0 metformin 500 MG tablet 500 mg PO BIDCM RF: 0 folic acid 1 MG tablet 5 mg PO DAILY@0800 RF: 0 omeprazole [Prilosec] 40 MG capsule,delayed release(DR/EC) 40 mg PO DAILY RF: 0 diclofenac sodium [Voltaren] 100 GM gel 1 inch TP DAILY PRN (Reason: Joint Pain) RF: 0 topiramate 25 MG tablet 25 mg PO BID Qty: 60 RF: 0 tramadol 50 mg tablet 50 mg TID PRN PRN (Reason: Pain) RF: 0 baclofen 10 mg tablet 10 mg Q8 RF: 0 nitroglycerin 0.4 mg tablet, sublingual 0.4 mg PRN PRN (Reason: Angina) RF: 0 montelukast 10 mg tablet 10 mg DAILY RF: 0 candesartan 8 mg tablet 8 mg DAILY RF: 0 Primary Care Provider: Jermaine Miranda Referrals: Jermaine Miranda MD [Primary Care Provider] - 3-5 Days Disposition Disposition: Home, self care
[2021-02-12] MEDS: Morphine 4 MG/ML Syringe IV (12:35)
[2021-02-12] MEDS: Ondansetron 4 MG/2 ML Vial IV (12:36)
[2021-02-12] MEDS: 0.9% Normal Saline 1,000 ML 125 ML IV (12:37)
[2021-02-12 12:54] LABS: Absolute Lymphocyte Count 1.86 X10^3/uL (0.83-4.51); Basophil# 0.01 X10^3/uL; Basophil% 0.2 % (0-1); Eosinophil# 0.15 X10^3/uL; Eosinophils% 2.7 % (0-5); Hemoglobin 14.1 g/dL (12.0-15.0); Lymphocyte # 1.86 X10^3/ul (0.83-4.51); Lymphocyte % 33.6 % (19-41); Mean Corp Hgb Conc 32.8 g/dL (32-36); Mean Corpuscular Hgb 29.1 pg (27.0-32.0); Mean Corpuscular Volume 88.8 fL (81-99); Mean Platelet Vol. 10.5 fl (6.2-12.0); Monocyte# 0.48 X10^3/uL; Monocyte% 8.7 % (0-10); NRBC Flagged by Analyzer 0 % (0-5); Neutrophil # 3.02 X10^3/uL (2.7-7.7); Neutrophil % 54.6 % (47-70); Platelet Count 261 K/mm3 (150-450); RBC Distribution Width CV 13.8 % (11.6-14.6); RBC Distribution Width SD 44.5 fl (35.1-43.9); Red Blood Count 4.84 M/mm3 (4.2-5.4); White Blood Count 5.5 K/mm3 (4.4-11.0)
[2021-02-12 13:03] LABS: ALB/GLOB Ratio 1.2 RATIO (0.9-2.4); AST(SGOT) 18 U/L (15-37); Alanine Aminotransfer ALT/SGPT 24 U/L (13-56); Albumin, Serum 4.2 g/dL (3.2-5.0); Alkaline Phosphatase 147 U/L (45-117); Anion Gap 6 (5-15); BUN 9 mg/dL (7-18); Calcium,Total 9.5 mg/dL (8.5-10.1); Chloride 104 mmol/L (98-107); Creatinine, Serum 0.53 mg/dL (0.55-1.02); EST Glomerular Filtration Rate 126 mL/min (>60); Est Glom Filt Rate - Afr Amer 152 mL/min (>60); Estimated Creatinine Clearance 108.31 ml/min; Globulin 3.5 g/dL (2.2-4.2); Glucose 120 mg/dL (74-106); Lipase 121 U/L (73-393); Potassium 3.9 mmol/L (3.5-5.1); Protein, Total 7.7 g/dL (6.4-8.2); Sodium Level 139 mmol/L (136-145)
[2021-02-12 13:17] LABS: Bacteria 0 SEEN /hpf (None Seen); Mucous, Urine 0 SEEN /hpf (<or=2+); Red Blood Cells-Urine 0 SEEN /hpf (0-5); Squamous Epithelial Cells - UA 0 SEEN /hpf (5-10); White Blood Cells 0 SEEN /hpf (0-5)
[2021-02-12 13:19] LABS: Color, Urine Yellow (Yellow); Glucose, Dipstick Normal (Normal); Ketone-Dipstick Negative (Negative); Leukocyte Esterase-Dipstick Negative /ul (Negative); Nitrite-Dipstick Negative (Negative); Occult Blood-Urine 25 /ul (Negative); Protein-Dipstick Negative (Negative); Urine Bilirubin Dipstick Negative (Negative); Urine Clarity Clear (Clear); Urine Urobilinogen Normal (Normal)
[2021-02-12] MEDS: HYDROmorphone 1 MG/ML Syringe IV (13:24)
[2021-02-12 13:47] LABS: Lactic Acid 2.1 mmol/L (0.4-1.9)
[2021-02-12 13:52] VITALS: BP 160/94; PULSE 56; RESP 16; O2SAT 98
[2021-02-12 15:05] VITALS: BP 152/90; PULSE 55; RESP 16; O2SAT 91
[2021-02-12 15:45] VITALS: BP 126/77; PULSE 62; RESP 15; O2SAT 96
[2021-02-12 17:15] LABS: Reflex Lactate? Y
== END 2021-02-12 15:45 | disposition home or self-care (01) ==
PROVIDERS: Emergency Provider Emergency Medicine; PCP Family Medicine
DX: R10.9 Unspecified abdominal pain (principal); E11.9 Type 2 diabetes mellitus without complications; M19.90 Unspecified osteoarthritis, unspecified site; M06.9 Rheumatoid arthritis, unspecified; F17.290 Nicotine dependence, other tobacco product, uncomplicated; Z79.84 Long term (current) use of oral hypoglycemic drugs
CPT/HCPCS: 74177; 80053; 81001; 83605; 83690; 85025; 96361; 96374; 96375; 99284; J7030; Q9967; A4216; J2405

== ENCOUNTER → 2021-02-19 12:50 | Outpatient (CLI) | payer MEDICARE, SELFPAY ==
[2021-02-12 11:42] VITALS: BMI 25.2
[2021-02-19 13:25] LABS: Absolute Lymphocyte Count 1.22 X10^3/uL (0.83-4.51); Absolute Neutrophil Count 3.4 X10^3/uL (2.0-7.7); Basophil# 0.02 X10^3/uL; Basophil% 0.4 % (0-1); Eosinophil# 0.12 X10^3/uL; Eosinophils% 2.3 % (0-5); Hematocrit 40.6 % (37-47); Hemoglobin 13.3 g/dL (12.0-15.0); Lymphocyte # 1.22 X10^3/ul (0.83-4.51); Lymphocyte % 23.5 % (19-41); Mean Corp Hgb Conc 32.8 g/dL (32-36); Mean Corpuscular Hgb 28.8 pg (27.0-32.0); Mean Corpuscular Volume 87.9 fL (81-99); Mean Platelet Vol. 10.6 fl (6.2-12.0); Monocyte% 7.7 % (0-10); NRBC Flagged by Analyzer 0 % (0-5); Neutrophil # 3.42 X10^3/uL (2.7-7.7); Neutrophil % 65.7 % (47-70); Platelet Count 247 K/mm3 (150-450); RBC Distribution Width CV 13.7 % (11.6-14.6); Red Blood Count 4.62 M/mm3 (4.2-5.4); White Blood Count 5.2 K/mm3 (4.4-11.0)
[2021-02-19 13:34] LABS: International Normalized Ratio 0.9
[2021-02-19 13:47] LABS: Microalbumin,Random Urine 7.6 mg/L (NO RANGE EST.)
[2021-02-19 13:50] LABS: Vitamin D,25 Hydroxy 55.4 ng/mL
[2021-02-19 13:57] LABS: ALB/GLOB Ratio 1.1 RATIO (0.9-2.4); AST(SGOT) 19 U/L (15-37); Alanine Aminotransfer ALT/SGPT 23 U/L (13-56); Albumin, Serum 3.8 g/dL (3.2-5.0); Alkaline Phosphatase 133 U/L (45-117); Anion Gap 8 (5-15); BUN 11 mg/dL (7-18); BUN/Creat Ratio 24.4 RATIO (10-20); Calcium,Total 9.2 mg/dL (8.5-10.1); Chloride 104 mmol/L (98-107); Cholesterol 158 mg/dL (200); Creatinine, Serum 0.45 mg/dL (0.55-1.02); EST Glomerular Filtration Rate 152 mL/min (>60); Est Glom Filt Rate - Afr Amer 183 mL/min (>60); Globulin 3.4 g/dL (2.2-4.2); Glucose 105 mg/dL (74-106); High Density Lipoprotein 67 mg/dL; Protein, Total 7.2 g/dL (6.4-8.2); Sodium Level 139 mmol/L (136-145); Thyroid Stim Hormone (TSH) 2.32 uIU/mL (0.358-3.74); Triglycerides 91 mg/dL; Very Low Density Lipoprotein 18 mg/dL (5-40)
== END ==
PROVIDERS: PCP Family Medicine; Referring Provider Family Medicine; Visit Provider Family Medicine
DX: E11.22 Type 2 diabetes mellitus with diabetic chronic kidney disease (principal); N18.9 Chronic kidney disease, unspecified; G89.4 Chronic pain syndrome; Z79.01 Long term (current) use of anticoagulants
CPT/HCPCS: 36415; 80053; 80061; 82043; 82306; 82570; 84443; 85025; 85610

== ENCOUNTER → 2021-03-14 14:48 | Outpatient (CLI) | payer MEDICARE, SELFPAY ==
[2021-02-12 11:42] VITALS: BMI 25.2
--- NOTE | 2021-03-14 14:52 | BI_ITS ---
MAMMOGRAPHY - BILATERAL SCREENING REASON FOR EXAM: Female, 60 years old. Routine annual screening examination. PERTINENT HISTORY: Non-contributory. TECHNIQUE: Digital bilateral breast alba (3D mammographic acquisition) in the CC and MLO projections. 2-D mediolateral oblique (MLO) and craniocaudad (CC) views of both breasts were obtained. CAD: Full Field Digital Mammography with Computer Added Detection was performed. COMPARISON: Comparison is made with prior examination dated 07/31/2018 08/12/2012. FINDINGS: Breast Composition: The breasts are almost entirely fatty. There are no dominant masses or suspicious calcifications. No other significant abnormalities are identified. There has been no significant change since the prior study. BI/SCRN MAMM (CAD)W/ALBA BILAT IMPRESSION: Stable bilateral screening mammogram. Yearly follow-up mammogram recommended. (A) ASSESSMENT CATEGORY: BIRADS Category 1: Negative. A letter regarding these results will be sent to the patient by the facility within 30 days. Approximately 10% of breast cancers are not detected by mammography. A normal mammogram should not delay biopsy of a clinically suspicious abnormality. [id number] Electronically Signed: Wesley Wetzel MD at 8:06 EDT , Service support ,
--- NOTE | 2021-03-14 15:03 | BD_ITS ---
STUDY: DUAL ENERGY X-RAY ABSORPTIOMETRY / DXA REASON FOR EXAM: Female, 60 years old. V76.12ScreeningBONE DENSITY REASON FOR EXAM TECHNIQUE: Bone Mineral Density (BMD) measurements of lumbar spine and bilateral hips were obtained. COMPARISON: Comparison is made with prior examination dated 08/12/2012. FINDINGS: Lumbar Spine (L1-L4): g/cm2 (1.038) / T-score (-1.1) / Z-score (0.0) Findings are suggestive of osteopenia with a low fracture risk. Left Femur Total: g/cm2 (0.910) / T-score (-0.8) / Z-score (0.0) Left Femoral Neck: g/cm2 (0.910) / T-score (-0.9) / Z-score (0.2) Right Femur Total: g/cm2 (0.917) / T-score (-0.7) / Z-score (0.1) Right Femoral Neck: g/cm2 (0.901) / T-score (-1.0) / Z-score (0.2) The T-Scores on the most recent prior examination were: Lumbar Spine (L1-L4): There has been improvement of bone density since the previous examination. Left Femur Total: which represents a worsening of 10.3%. Right Femur Total: which represents a worsening of 16.6%. BD/Dexa Bone Density Study IMPRESSION: The patient is considered osteopenic as outlined below according to World John Organization (WHO) criteria with a low fracture risk. There has been worsening of bone density since the previous examination. Reference Information: The T-score is the number of standard deviations above or below the standard which is normal for young adults at their peak bone mineral density. The World Health Organization (WHO) interprets the T-scores as follows: Above -1 Normal bone density Between -1 and -2.5 Osteopenia Equal to / or below -2.5 Osteoporosis As a practical clinical guideline, osteopenia may be graded as follows: Mild -1 through -1.5 Moderate -1.6 through -2.0 Severe -2.1 through -2.4 The Z-score is the number of standard deviations above or below age-matched controls. A Z-score of less than -1.5 would be considered abnormal. References: 1. NIH Osteoporosis and Related Bone Diseases www osteo.org 2. International Society for Clinical Densitometry www iscd.org 3. National Osteoporosis Foundation www nof.org Electronically Signed: Wesley Wetzel MD at 10:05 EDT , Service support ,
== END ==
PROVIDERS: PCP Family Medicine; Referring Provider Family Medicine; Visit Provider Family Medicine
DX: M85.80 Other specified disorders of bone density and structure, unspecified site (principal); N95.9 Unspecified menopausal and perimenopausal disorder; Z12.31 Encounter for screening mammogram for malignant neoplasm of breast
CPT/HCPCS: 77063; 77067; 77080

== ENCOUNTER → 2021-03-21 08:59 | Outpatient (CLI) | payer MEDICARE, SELFPAY ==
[2021-03-21 11:40] LABS: Absolute Lymphocyte Count 1.54 X10^3/uL (0.83-4.51); Absolute Neutrophil Count 2.1 X10^3/uL (2.0-7.7); Basophil# 0.04 X10^3/uL; Eosinophil# 0.11 X10^3/uL; Eosinophils% 2.6 % (0-5); Hematocrit 40.9 % (37-47); Hemoglobin 13.3 g/dL (12.0-15.0); Lymphocyte # 1.54 X10^3/ul (0.83-4.51); Lymphocyte % 36.8 % (19-41); Mean Corp Hgb Conc 32.5 g/dL (32-36); Mean Corpuscular Hgb 28.9 pg (27.0-32.0); Mean Corpuscular Volume 88.9 fL (81-99); Mean Platelet Vol. 10.8 fl (6.2-12.0); Monocyte# 0.42 X10^3/uL; NRBC Flagged by Analyzer 0 % (0-5); Neutrophil # 2.05 X10^3/uL (2.7-7.7); Neutrophil % 49.1 % (47-70); Platelet Count 233 K/mm3 (150-450); RBC Distribution Width CV 13.4 % (11.6-14.6); RBC Distribution Width SD 43.7 fl (35.1-43.9); White Blood Count 4.2 K/mm3 (4.4-11.0)
[2021-03-21 11:50] LABS: Prothrombin Time (Protime)PT. 21.5 SECONDS (11.7-14.9)
[2021-03-21 12:02] LABS: Hemoglobin A1c 6.4 % (3.8-5.6)
[2021-03-21 12:21] LABS: Vitamin D,25 Hydroxy 49.9 ng/mL
[2021-03-21 12:26] LABS: ALB/GLOB Ratio 1.2 RATIO (0.9-2.4); AST(SGOT) 22 U/L (15-37); Alanine Aminotransfer ALT/SGPT 28 U/L (13-56); Albumin, Serum 3.8 g/dL (3.2-5.0); Alkaline Phosphatase 123 U/L (45-117); Anion Gap 9 (5-15); BUN 8 mg/dL (7-18); Calcium,Total 8.7 mg/dL (8.5-10.1); Chloride 103 mmol/L (98-107); Cholesterol 144 mg/dL (200); EST Glomerular Filtration Rate 174 mL/min (>60); Est Glom Filt Rate - Afr Amer 211 mL/min (>60); Globulin 3.2 g/dL (2.2-4.2); Glucose 93 mg/dL (74-106); High Density Lipoprotein 59 mg/dL; Potassium 3.9 mmol/L (3.5-5.1); Sodium Level 141 mmol/L (136-145); Thyroid Stim Hormone (TSH) 2.23 uIU/mL (0.358-3.74); Triglycerides 118 mg/dL; Very Low Density Lipoprotein 24 mg/dL (5-40)
== END ==
PROVIDERS: PCP Family Medicine; Visit Provider Family Medicine
DX: E11.22 Type 2 diabetes mellitus with diabetic chronic kidney disease (principal); N18.2 Chronic kidney disease, stage 2 (mild); M85.80 Other specified disorders of bone density and structure, unspecified site; Z79.01 Long term (current) use of anticoagulants
CPT/HCPCS: 36415; 80053; 80061; 82306; 83036; 84443; 85025; 85610

== ENCOUNTER → 2021-04-02 11:11 | Outpatient (CLI) | payer MEDICARE, SELFPAY ==
[2021-04-02 12:01] LABS: Prothrombin Time (Protime)PT. 12.6 SECONDS (11.7-14.9)
== END ==
PROVIDERS: PCP Family Medicine; Referring Provider Nurse Practitioner Family; Visit Provider Nurse Practitioner Family
DX: Z79.01 Long term (current) use of anticoagulants (principal)
CPT/HCPCS: 36415; 85610

== ENCOUNTER → 2021-05-09 14:32 | Outpatient (CLI) | payer MEDICARE, SELFPAY ==
[2021-05-09 16:01] LABS: Prothrombin Time (Protime)PT. 12.3 SECONDS (11.7-14.9)
== END ==
PROVIDERS: PCP Family Medicine; Visit Provider Family Medicine
DX: I66.9 Occlusion and stenosis of unspecified cerebral artery (principal)
CPT/HCPCS: 36415; 85610

== ENCOUNTER → 2021-06-20 13:18 | Outpatient (CLI) | payer MEDICARE, SELFPAY ==
[2021-06-20 14:17] LABS: Prothrombin Time (Protime)PT. 12.5 SECONDS (11.7-14.9)
== END ==
PROVIDERS: PCP Family Medicine; Visit Provider Nurse Practitioner Family
DX: Z79.01 Long term (current) use of anticoagulants (principal)
CPT/HCPCS: 36415; 85610

== ENCOUNTER → 2021-07-31 08:59 | Outpatient (CLI) | payer MEDICARE, SELFPAY ==
[2021-07-31 09:56] LABS: Absolute Lymphocyte Count 1.21 X10^3/uL (0.83-4.51); Absolute Neutrophil Count 3.4 X10^3/uL (2.0-7.7); Basophil# 0.02 X10^3/uL; Basophil% 0.4 % (0-1); Eosinophil# 0.17 X10^3/uL; Eosinophils% 3.2 % (0-5); Hematocrit 41.7 % (37-47); Hemoglobin 13.5 g/dL (12.0-15.0); Lymphocyte # 1.21 X10^3/ul (0.83-4.51); Lymphocyte % 22.9 % (19-41); Mean Corp Hgb Conc 32.4 g/dL (32-36); Mean Corpuscular Hgb 28.7 pg (27.0-32.0); Mean Corpuscular Volume 88.7 fL (81-99); Mean Platelet Vol. 10.9 fl (6.2-12.0); Monocyte# 0.45 X10^3/uL; Monocyte% 8.5 % (0-10); NRBC Flagged by Analyzer 0 % (0-5); Neutrophil # 3.41 X10^3/uL (2.7-7.7); Neutrophil % 64.6 % (47-70); Platelet Count 260 K/mm3 (150-450); RBC Distribution Width CV 13.2 % (11.6-14.6); RBC Distribution Width SD 43.1 fl (35.1-43.9); White Blood Count 5.3 K/mm3 (4.4-11.0)
[2021-07-31 10:05] LABS: International Normalized Ratio 2.6; Prothrombin Time (Protime)PT. 27.4 SECONDS (11.7-14.9)
[2021-07-31 10:10] LABS: Hemoglobin A1c 6.4 % (3.8-5.6)
[2021-07-31 10:51] LABS: ALB/GLOB Ratio 1.1 RATIO (0.9-2.4); AST(SGOT) 19 U/L (15-37); Alanine Aminotransfer ALT/SGPT 24 U/L (13-56); Albumin, Serum 3.8 g/dL (3.2-5.0); Alkaline Phosphatase 129 U/L (45-117); Anion Gap 3 (5-15); BUN 11 mg/dL (7-18); BUN/Creat Ratio 26.6 RATIO (10-20); Chloride 106 mmol/L (98-107); Creatinine, Serum 0.41 mg/dL (0.55-1.02); EST Glomerular Filtration Rate 168 mL/min (>60); Est Glom Filt Rate - Afr Amer 203 mL/min (>60); Globulin 3.6 g/dL (2.2-4.2); Glucose 142 mg/dL (74-106); Potassium 3.6 mmol/L (3.5-5.1); Protein, Total 7.4 g/dL (6.4-8.2); Sodium Level 141 mmol/L (136-145); Thyroid Stim Hormone (TSH) 1.95 uIU/mL (0.358-3.74)
[2021-07-31 11:57] LABS: Microalbumin,Random Urine 19.5 mg/L (NO RANGE EST.); Microalbumin:Creatinine Ratio 30.2 mg/g CRE (<30 mg/g CRE)
== END ==
PROVIDERS: PCP Family Medicine; Referring Provider Family Medicine; Visit Provider Family Medicine
DX: E11.22 Type 2 diabetes mellitus with diabetic chronic kidney disease (principal); N18.9 Chronic kidney disease, unspecified; F41.1 Generalized anxiety disorder; G89.4 Chronic pain syndrome; I66.9 Occlusion and stenosis of unspecified cerebral artery
CPT/HCPCS: 36415; 80053; 82043; 82306; 82570; 83036; 84443; 85025; 85610

== ENCOUNTER → 2021-08-21 11:24 | Outpatient (CLI) | payer MEDICARE, SELFPAY ==
[2021-08-21 12:38] LABS: Prothrombin Time (Protime)PT. 12.7 SECONDS (11.7-14.9)
== END ==
PROVIDERS: PCP Family Medicine; Referring Provider Nurse Practitioner Family; Visit Provider Nurse Practitioner Family
DX: Z79.01 Long term (current) use of anticoagulants (principal)
CPT/HCPCS: 36415; 85610

== ENCOUNTER → 2021-09-03 13:24 | Outpatient (CLI) | payer MEDICARE, SELFPAY ==
--- NOTE | 2021-09-03 13:34 | CT_ITS ---
STUDY: CT ABDOMEN AND PELVIS WITH CONTRAST REASON FOR EXAM: Female, 60 years old. ACUTE RT LOWER QUADRANT PAIN RADIATION DOSAGE (If Supplied By Facility): CTDIvol = ( 15.26 ) mGy, DLP = ( 1080.87 ) mGycm TECHNIQUE: Transaxial images were obtained from the dome of the diaphragm to the symphysis pubis with oral contrast. Oral and amp;amp; IV Gastrografin and amp;amp; 100mL Isovue-[id number] was administered. Sagittal and coronal images were reconstructed. Individualized dose optimization techniques were used for this CT. COMPARISON: 03/14/2021 FINDINGS: The visualized lung bases are unremarkable. The visualized portions of the heart are within normal limits. Normal liver. Tiny right hepatic cyst redemonstrated. Normal gallbladder and extrahepatic biliary system. Normal spleen. Normal pancreas. Normal bilateral adrenal glands. Normal right kidney. Normal left kidney. Normal visualized stomach. Normal small intestine. Copious stool throughout the bowel. Enteric contrast reaches the large bowel. The appendix is visualized and appears normal. Normal abdominal aorta. There is an IVC filter in place. Normal retroperitoneum. Normal urinary bladder. There is absence of the uterus consistent with a prior hysterectomy. Normal abdominal wall. There are diffuse degenerative changes of the visualized lumbar spine. CT/Abdomen/Pelvis WITH Contrast IMPRESSION: Copious stool and bowel suggests constipation. Normal appearing appendix. Electronically Signed: Jez Rodriguez MD at 5:52 EST Tel , Service support ,
[2021-09-03 13:50] LABS: CREATININE FINGERSTICK < 0.6 mg/dL (0.55-1.02); EGFR FINGERSTICK > 60.0000 mL/min (>60)
== END ==
PROVIDERS: PCP Family Medicine; Referring Provider Registered Nurse; Visit Provider Registered Nurse
DX: R10.31 Right lower quadrant pain (principal)
CPT/HCPCS: 74177; Q9967

== ENCOUNTER → 2022-03-05 | Outpatient (CLI) | payer MEDICARE, SELFPAY ==
[2022-03-05 15:19] LABS: Absolute Lymphocyte Count 1.66 X10^3/uL (0.83-4.51); Absolute Neutrophil Count 2.6 X10^3/uL (2.0-7.7); Basophil# 0.03 X10^3/uL; Basophil% 0.6 % (0-1); Eosinophil# 0.15 X10^3/uL; Eosinophils% 3.1 % (0-5); Hematocrit 39.4 % (37-47); Hemoglobin 13.1 g/dL (12.0-15.0); Lymphocyte # 1.66 X10^3/ul (0.83-4.51); Lymphocyte % 34.4 % (19-41); Mean Corp Hgb Conc 33.2 g/dL (32-36); Mean Corpuscular Hgb 28.4 pg (27.0-32.0); Mean Corpuscular Volume 85.3 fL (81-99); Mean Platelet Vol. 10.6 fl (6.2-12.0); Monocyte# 0.41 X10^3/uL; Monocyte% 8.5 % (0-10); NRBC Flagged by Analyzer 0 % (0-5); Neutrophil # 2.56 X10^3/uL (2.7-7.7); Neutrophil % 53.2 % (47-70); Platelet Count 293 K/mm3 (150-450); RBC Distribution Width CV 13.4 % (11.6-14.6); RBC Distribution Width SD 41.6 fl (35.1-43.9); Red Blood Count 4.62 M/mm3 (4.2-5.4); White Blood Count 4.8 K/mm3 (4.4-11.0)
[2022-03-05 15:43] LABS: ALB/GLOB Ratio 1.2 RATIO (0.9-2.4); AST(SGOT) 20 U/L (15-37); Alanine Aminotransfer ALT/SGPT 32 U/L (13-56); Alkaline Phosphatase 143 U/L (45-117); Anion Gap 7 (5-15); BUN 10 mg/dL (7-18); BUN/Creat Ratio 20.5 RATIO (10-20); Calcium,Total 9.6 mg/dL (8.5-10.1); Chloride 104 mmol/L (98-107); Cholesterol 253 mg/dL (200); Creatinine, Serum 0.49 mg/dL (0.55-1.02); EST Glomerular Filtration Rate 138 mL/min (>60); Est Glom Filt Rate - Afr Amer 167 mL/min (>60); Globulin 3.3 g/dL (2.2-4.2); Glucose 114 mg/dL (74-106); High Density Lipoprotein 45 mg/dL; Potassium 3.8 mmol/L (3.5-5.1); Protein, Total 7.3 g/dL (6.4-8.2); Sodium Level 139 mmol/L (136-145)
[2022-03-07 19:13] LABS: LDL, Direct 120295 170 mg/dL (0-99)
== END | disposition home or self-care (01) ==
LOC: MTLAB 12:38
PROVIDERS: PCP Family Medicine; Referring Provider Family Medicine; Visit Provider Family Medicine
DX: E11.22 Type 2 diabetes mellitus with diabetic chronic kidney disease (principal)
CPT/HCPCS: 36415; 80053; 82465; 83718; 83721; 85025

== ENCOUNTER → 2022-06-18 | Outpatient (CLI) | payer MEDICARE, SELFPAY ==
--- NOTE | 2022-06-18 11:48 | NEURO ---
NCS and/or EMG Patient Report Ordering Doctor: Joi Goins NP DATE OF SERVICE: 06/18/22 Teri presents for electrodiagnostic testing of the right upper limb and left lower limb. She has numbness and tingling in the right fingertips and pain in the left foot. She has a history of low back pain for which she receives injections. She has a history of diabetes. Electrodiagnostic findings: Right median motor nerve demonstrates prolonged distal latency with normal amplitude and conduction velocity. Normal right ulnar motor response. Normal left peroneal and tibial motor responses. F waves are within normal limits. H reflex normal bilaterally. Right median sensory latency at the wrist is prolonged. Normal ulnar and radial sensory responses on the right side. Normal left sural and superficial peroneal responses. On needle EMG, all muscles tested in the right upper and left lower limb showed no evidence of denervation with normal motor unit action potentials. Electrodiagnostic impression: This is an abnormal study. 1. Electrodiagnostic findings demonstrate right-sided median mononeuropathy. This is consistent with a moderate right carpal tunnel syndrome. 2. There is no electrodiagnostic evidence for cervical or lumbar radiculopathy. 3. There is no electrodiagnostic evidence for neuropathy in the left lower limb.
== END | disposition home or self-care (01) ==
LOC: PSN 08:58
PROVIDERS: PCP Family Medicine; Referring Provider Nurse Practitioner Family; Visit Provider Nurse Practitioner Family
DX: R20.2 Paresthesia of skin (principal)
CPT/HCPCS: 95886; 95912

== ENCOUNTER → 2022-08-25 | Outpatient (CLI) | payer MEDICARE, SELFPAY ==
--- NOTE | 2022-08-25 15:03 | BI_ITS ---
MAMMOGRAPHY - BILATERAL SCREENING REASON FOR EXAM: Female, 61 years old. Routine annual screening examination. PERTINENT HISTORY: Non-contributory. TECHNIQUE: Digital bilateral breast alba (3D mammographic acquisition) in the CC and MLO projections. 2-D mediolateral oblique (MLO) and craniocaudad (CC) views of both breasts were obtained. CAD: Full Field Digital Mammography with Computer Added Detection was performed. COMPARISON: Comparison is made with prior examination dated 03/14/2021 and 07/31/2018 FINDINGS: Breast Composition: The breasts are almost entirely fatty. There are no dominant masses or suspicious calcifications. No other significant abnormalities are identified. There has been no significant change since the prior study. BI/SCRN MAMM (CAD)W/ALBA BILAT IMPRESSION: Stable bilateral screening mammogram. Yearly follow-up mammogram recommended. (A) ASSESSMENT CATEGORY: BIRADS Category 1: Negative. A letter regarding these results will be sent to the patient by the facility within 30 days. Approximately 10% of breast cancers are not detected by mammography. A normal mammogram should not delay biopsy of a clinically suspicious abnormality. [id number] Electronically Signed: Wesley Wetzel MD at 8:35 EST ,
== END | disposition home or self-care (01) ==
LOC: OPBI 15:01
PROVIDERS: PCP Family Medicine; Visit Provider Family Medicine
DX: Z12.31 Encounter for screening mammogram for malignant neoplasm of breast (principal)
CPT/HCPCS: 77063; 77067

== ENCOUNTER 2022-09-22 20:43 | Emergency (ER) | payer MEDICARE, SELFPAY ==
[2022-09-22 20:44] VITALS: BP 143/95; PULSE 104; RESP 18; TEMP 36.4; O2SAT 99; BMI 25.7
--- NOTE | 2022-09-22 21:27 | CT_ITS ---
INDICATION: hematuria, R flank pain EXAMINATION: CT ABDOMEN AND PELVIS WITHOUT CONTRAST - CT Abdomen And Pelvis W/O Contrast Injection TECHNIQUE: Helically acquired images were obtained of the abdomen and pelvis without oral or IV contrast. A radiation dose optimization technique was used for this scan. IV Contrast dosage and agent: None. Oral contrast: None. COMPARISON: CT abdomen and pelvis 09/03/2021 FINDINGS: LOWER CHEST: Included lung bases are clear. Mild coronary artery calcifications. LIVER: Grossly unremarkable. GALLBLADDER AND BILIARY TREE: Grossly unremarkable. PANCREAS: Grossly unremarkable. SPLEEN: Grossly unremarkable. ADRENAL GLANDS: Grossly unremarkable. KIDNEYS AND URETERS: No calculi demonstrated. No hydronephrosis. Prominent extrarenal pelvis on the right. PERITONEUM: No free air. No free fluid. BOWEL: No bowel obstruction. APPENDIX: Visualized and unremarkable. No evidence of acute appendicitis. VESSELS: Abdominal aorta is normal caliber. IVC filter tip below the renal veins unchanged. REPRODUCTIVE ORGANS: Uterus not identified. URINARY BLADDER: Grossly unremarkable. ABDOMINAL WALL: Small umbilical hernia contains only fat, no bowel. BONES: Degenerative changes lumbar spine. CT/Abdomen/Pelvis without Cont IMPRESSION: No acute findings. Electronically Signed: Gena Acosta MD at 22:22 EST ,
[2022-09-22 21:28] LABS: Mucous, Urine 0 SEEN /hpf (<or=2+); Squamous Epithelial Cells - UA 0 SEEN /hpf (5-10)
--- NOTE | 2022-09-22 21:28 | ED.VIS.FEGU ---
HPI <HERB Izaguirre - Last Filed: 09/22/22 23:02> HPI - Female History of Present Illness Chief Complaint: Complaint Narrative Narrative: Patient presents today with right flank pain and hematuria. She states she has had the right flank pain intermittently for the past 4 days but it acutely worsened today and radiates into her right groin and is now constant. She states that the hematuria started today. Patient denies dysuria, a history of kidney stones, vomiting, abdominal pain, fever, and diarrhea. [facility] <HERB Izaguirre - Last Filed: 09/22/22 23:02> [facility] Medical History (Updated 09/22/22 @ 22:31 by HERB Izaguirre) Abdominal hernia Diabetes type 2, controlled MTHFR (methylene THF reductase) deficiency and homocystinuria JONI (obstructive sleep apnea) Osteoarthritis Rheumatoid arthritis Rotator cuff arthropathy of left shoulder Home Medications amlodipine 10 mg tablet 10 mg PO DAILY 04/25/14 [History Last Taken Unknown] calcium carbonate 500 mg calcium (1,250 mg) tablet (Oyster Shell Calcium 500) 500 mg PO DAILY@0800 04/25/14 [History Last Taken Unknown] potassium 99 mg tablet 99 mg PO DAILY 04/25/14 [History Last Taken Unknown] warfarin 2 mg tablet (Jantoven) 4 mg PO QODAY 04/25/14 [History Last Taken Unknown] diclofenac sodium 1 % topical gel (Voltaren) 1 inch TP DAILY PRN Joint Pain 01/12/15 [History Last Taken Unknown] folic acid 1 mg tablet 5 mg PO DAILY@0800 01/12/15 [History Last Taken Unknown] metformin 500 mg tablet 500 mg PO BIDCM 01/12/15 [History Last Taken Unknown] omeprazole 40 mg capsule,delayed release (Prilosec) 40 mg PO DAILY 01/12/15 [History Last Taken Unknown] topiramate 25 mg tablet 25 mg PO BID ##60 01/13/15 [Rx Last Taken Unknown] baclofen 10 mg tablet 10 mg Q8 02/12/21 [History Last Taken Unknown] candesartan 8 mg tablet 8 mg DAILY 02/12/21 [History Last Taken Unknown] hydrocodone-acetaminophen 5-325mg 5mg-325mg 1 tab PO Q4H PRN PRN Pain 2 days #10 TABLETS 02/12/21 [Rx Last Taken Unknown] montelukast 10 mg tablet 10 mg DAILY 02/12/21 [History Last Taken Unknown] nitroglycerin 0.4 mg sublingual tablet 0.4 mg PRN PRN Angina 02/12/21 [History Last Taken Unknown] tramadol 50 mg tablet 50 mg TID PRN PRN Pain 02/12/21 [History Last Taken Unknown] cephalexin 500 mg capsule 500 mg PO Q6 7 days #28 caps 09/22/22 [Rx Last Taken Unknown] Allergy/AdvReac Type Severity Reaction Status Date / Time albuterol Allergy Chest Verified 02/12/21 11:41 tightness celecoxib [From Celebrex] Allergy Other Verified 02/12/21 11:41 feathers Allergy Hives Verified 02/12/21 11:41 Surgical History (Updated 02/12/21 @ 12:14 by Angie Bustillo RN) H/O hernia repair History of hysterectomy for benign disease Total knee replacement status Social History Smoking Status: Current some day smoker tobacco type: e-cigarettes ROS <HERB Izaguirre - Last Filed: 09/22/22 23:02> ROS ED Constitutional Constitutional ED: Denies chills, fever(s) or sweats Eyes Eyes: Denies blurry vision or change in vision ENT ENT ED: Denies rhinorrhea or sore throat Cardiovascular Cardiovascular: Denies chest pain or palpitations Respiratory/Chest Respiratory/Chest: Denies cough, dyspnea or dyspnea on exertion Gastrointestinal Gastrointestinal: Reports nausea; Denies abdominal pain, diarrhea or vomiting Genitourinary Genitourinary ED: Reports dysuria and hematuria Musculoskeletal Musculoskeletal: Denies arthralgias or myalgias Integumentary Denies abscess, Abrasions or rash Neurologic Neurologic: Denies headache(s), paresthesias or weakness Psychiatric Psychiatric: Denies anxiety, depression or suicidal ideation Allergic/Immunologic Allergic/Immunologic ED: Denies mouth swelling or tongue swelling EXAM <HERB Izaguirre - Last Filed: 09/22/22 23:02> Physical Exam Const Vital Signs: 09/22/22 20:44 09/22/22 22:42 Temperature 97.6 F L Temperature Source Temporal Pulse Rate 104 H 88 Respiratory Rate 18 18 Blood Pressure 143/95 H Blood Pressure Mean 111 Pulse Ox 99 99 Oxygen Delivery Method Room Air Room Air Positive well nourished and well developed General Appearance ED: well developed HEENT Reports moist mucous membranes Negative for trauma Eyes PERRL and EOMs intact bilaterally Neck supple Chest Wall inspection of chest normal Resp normal respiratory effort and clear to auscultation bilaterally Cardio regular rate and regular rhythm GI soft to palpation, non-tender, non-distended and no masses Back/Spine General Back: CVA tenderness right Extremity normal to inspection and full ROM Neuro oriented x3, CN's II-XII intact bilaterally and no sensory deficits noted Sensorium / Orientation: alert Motor Exam: strength 5/5 throughout Psych mental status grossly normal Skin no rashes or lesions noted and no wounds <Dr. Emiliano Darnell DO - Last Filed: 09/22/22 23:09> Physical Exam Const Vital Signs: 09/22/22 20:44 09/22/22 22:42 Temperature 97.6 F L Temperature Source Temporal Pulse Rate 104 H 88 Respiratory Rate 18 18 Blood Pressure 143/95 H Blood Pressure Mean 111 Pulse Ox 99 99 Oxygen Delivery Method Room Air Room Air MDM <HERB Izaguirre - Last Filed: 09/22/22 23:02> [facility] MDM Narrative Medical decision making narrative: Patient presenting with right flank pain that she has had intermittently for the past 4 days but today acutely worsened. She is also having hematuria. Patient denied pain control during initial evaluation but shortly after began crying in pain and requested that she have something for pain. She has been given pain control here as well as Zofran. CT of the abdomen and pelvis obtained and does not show any acute findings. Patient does have acute cystitis and has been started on Rocephin here. She has been given Keflex for home. On reexamination patient states she is feeling much better and is much more comfortable. She has been given return instructions. She will discharge home in stable condition and patient is comfortable with plan. Patient states she does not need pain control for home. Differentials I have considered: 1. Nephrolithiasis 2. Urolithiasis 3. Acute cystitis 4. Pyelonephritis Lab Data Attestation: I reviewed the patient's lab results. Lab results narrative: CBC unremarkable, creatinine 0.52, glucose 167, hematuria, positive nitrites, positive leukocytes, positive bacteria in urine. Urine ketones. Labs: Laboratory Results - last 24 hr 09/22/22 09/22/22 09/22/22 21:11 21:17 21:17 WBC 7.7 RBC 5.00 Hgb 13.6 Hct 42.8 MCV 85.6 MCH 27.2 MCHC 31.8 L RDW Std Deviation 43.8 RDW Coeff of Gilberto 14.1 Plt Count 282 MPV 10.5 Immature Gran % (Auto) 0.300 Neut % (Auto) 64.9 Lymph % (Auto) 22.7 Andrews % (Auto) 10.3 H Eos % (Auto) 1.4 Baso % (Auto) 0.4 Absolute Neuts (auto) 5.0 Absolute Lymphs (auto) 1.74 Nucleated RBC % 0 Sodium 139 Potassium 3.7 Chloride 103 Carbon Dioxide 29.0 Anion Gap 7 BUN 10 Creatinine 0.52 L Estim Creat Clear Calc 109.05 Est GFR (MDRD) Af Amer 154 Est GFR (MDRD) Non-Af 127 BUN/Creatinine Ratio 19.2 Glucose 167 H Calcium 9.6 Urine Color Lavern Urine Clarity Cloudy Urine pH 7.0 Ur Specific Sherwood 1.010 Urine Protein 100 H Urine Glucose (UA) Normal Urine Ketones 5 H Urine Occult Blood 250 H Urine Nitrite Positive H Urine Bilirubin Negative Urine Urobilinogen 1 H Ur Leukocyte Esterase 500 H Urine RBC > 100 SEEN Urine WBC 25-50 SEEN Ur Squamous Epith Cells 0 SEEN Urine Bacteria 1+ Urine Mucus 0 SEEN Radiography Diagnostic Testing: Clinical Impression(s) from Imaging Studies Abdomen/Pelvis CT 09/22/22 21:27 IMPRESSION: No acute findings. Electronically Signed: Gena Acosta MD at 22:22 EST Reading Location ID and State: [facility] / [place] Tel , Service support , CT also reviewed by attending ED physician. <Dr. Emiliano Darnell, DO - Last Filed: 09/22/22 23:09> [facility] Narrative Medical decision making narrative: Patient presenting with right flank pain that she has had intermittently for the past 4 days but today acutely worsened. She is also having hematuria. Patient denied pain control during initial evaluation but shortly after began crying in pain and requested that she have something for pain. She has been given pain control here as well as Zofran. CT of the abdomen and pelvis obtained and does not show any acute findings. Patient does have acute cystitis and has been started on Rocephin here. She has been given Keflex for home. On reexamination patient states she is feeling much better and is much more comfortable. She has been given return instructions. She will discharge home in stable condition and patient is comfortable with plan. Patient states she does not need pain control for home. Differentials I have considered: 1. Nephrolithiasis 2. Urolithiasis 3. Acute cystitis 4. Pyelonephritis Attending note: Patient seen and evaluated with administrative volunteer. I perform my own [id number] evaluation. I agree with the plan of work-up. Increasing right flank pain 2 days with hematuria and urine urgency. Exam tender right flank no rash. Patient's work-up negative for kidney stones. She had findings of UTI. She will be treated for complicated UTI. With hematuria possible cystitis. IV antibiotic started. Laboratory studies were reviewed and stable white count creatinine. Urine culture added. Patient takes tramadol at home. Outpatient follow-up. Lab Data Labs: Laboratory Results - last 24 hr 09/22/22 09/22/22 09/22/22 21:11 21:17 21:17 WBC 7.7 RBC 5.00 Hgb 13.6 Hct 42.8 MCV 85.6 MCH 27.2 MCHC 31.8 L RDW Std Deviation 43.8 RDW Coeff of Gilberto 14.1 Plt Count 282 MPV 10.5 Immature Gran % (Auto) 0.300 Neut % (Auto) 64.9 Lymph % (Auto) 22.7 Andrews % (Auto) 10.3 H Eos % (Auto) 1.4 Baso % (Auto) 0.4 Absolute Neuts (auto) 5.0 Absolute Lymphs (auto) 1.74 Nucleated RBC % 0 Sodium 139 Potassium 3.7 Chloride 103 Carbon Dioxide 29.0 Anion Gap 7 BUN 10 Creatinine 0.52 L Estim Creat Clear Calc 109.05 Est GFR (MDRD) Af Amer 154 Est GFR (MDRD) Non-Af 127 BUN/Creatinine Ratio 19.2 Glucose 167 H Calcium 9.6 Urine Color Lavern Urine Clarity Cloudy Urine pH 7.0 Ur Specific Sherwood 1.010 Urine Protein 100 H Urine Glucose (UA) Normal Urine Ketones 5 H Urine Occult Blood 250 H Urine Nitrite Positive H Urine Bilirubin Negative Urine Urobilinogen 1 H Ur Leukocyte Esterase 500 H Urine RBC > 100 SEEN Urine WBC 25-50 SEEN Ur Squamous Epith Cells 0 SEEN Urine Bacteria 1+ Urine Mucus 0 SEEN Radiography Diagnostic Testing: Clinical Impression(s) from Imaging Studies Abdomen/Pelvis CT 09/22/22 21:27 IMPRESSION: No acute findings. Electronically Signed: Gena Acosta MD at 22:22 EST Reading Location ID and State: [address] [place] [address] Tel , Service support , Discharge Plan Triage Chief Complaint: Complaint ED Midlevel Provider: Cordelia Ellington ED Provider: Emiliano Darnell Dx/Rx/DC Orders Clinical Impression: Acute cystitis, Right flank pain Instructions: ED Cystitis Female Adult Prescriptions: New cephalexin 500 mg capsule 500 mg PO Q6 7 Days Qty: 28 0RF No Action potassium 99 MG tablet 99 mg PO DAILY Label Comments: supplement calcium carbonate [Oyster Shell Calcium 500] 500 MG tablet 500 mg PO DAILY@0800 Label Comments: supplement amlodipine 10 MG tablet 10 mg PO DAILY Label Comments: blood pressure warfarin [Jantoven] 2 MG tablet 4 mg PO QODAY Label Comments: MOWEFR blood thinner metformin 500 MG tablet 500 mg PO BIDCM Label Comments: diabetes folic acid 1 MG tablet 5 mg PO DAILY@0800 Label Comments: SUPPLEMENT omeprazole [Prilosec] 40 MG capsule,delayed release(DR/EC) 40 mg PO DAILY Label Comments: acid reflux diclofenac sodium [Voltaren] 100 GM gel 1 inch TP DAILY PRN (Reason: Joint Pain) Label Comments: pain topiramate 25 MG tablet 25 mg PO BID Qty: 60 0RF Label Comments: migraines tramadol 50 mg tablet 50 mg TID PRN PRN (Reason: Pain) Label Comments: TAKE 1 TABLET EVERY 8 HOURS NEEDED FOR 90 DAYS baclofen 10 mg tablet 10 mg Q8 nitroglycerin 0.4 mg tablet, sublingual 0.4 mg PRN PRN (Reason: Angina) Rx Instructions: x3 q 5 min montelukast 10 mg tablet 10 mg DAILY candesartan 8 mg tablet 8 mg DAILY hydrocodone-acetaminophen [hydrocodone-acetaminophen] 1 TABLET tablet 1 tab PO Q4H PRN PRN (Reason: Pain) 2 Days Qty: 10 0RF Primary Care Provider: Jermaine Miranda Referrals: Jermaine Miranda MD [Primary Care Provider] - 3-5 Days Activity Restrictions/Additional Instructions: Please follow-up with PCP and return if symptoms persist or worsen. Disposition Disposition: Home, Self Care
[2022-09-22 21:35] LABS: Color, Urine Amber (Yellow); Glucose, Dipstick Normal (Normal); Ketone-Dipstick 5 mg/dl (Negative); Leukocyte Esterase-Dipstick 500 /ul (Negative); Nitrite-Dipstick Positive (Negative); Occult Blood-Urine 250 /ul (Negative); Protein-Dipstick 100 mg/dl (Negative); Urine Bilirubin Dipstick Negative (Negative); Urine Clarity Cloudy (Clear); Urine Urobilinogen 1 mg/dl (Normal)
[2022-09-22 21:45] LABS: Absolute Lymphocyte Count 1.74 X10^3/uL (0.83-4.51); Basophil# 0.03 X10^3/uL; Basophil% 0.4 % (0-1); Eosinophil# 0.11 X10^3/uL; Eosinophils% 1.4 % (0-5); Hematocrit 42.8 % (37-47); Hemoglobin 13.6 g/dL (12.0-15.0); Lymphocyte # 1.74 X10^3/ul (0.83-4.51); Lymphocyte % 22.7 % (19-41); Mean Corp Hgb Conc 31.8 g/dL (32-36); Mean Corpuscular Hgb 27.2 pg (27.0-32.0); Mean Corpuscular Volume 85.6 fL (81-99); Mean Platelet Vol. 10.5 fl (6.2-12.0); Monocyte# 0.79 X10^3/uL; Monocyte% 10.3 % (0-10); NRBC Flagged by Analyzer 0 % (0-5); Neutrophil # 4.97 X10^3/uL (2.7-7.7); Neutrophil % 64.9 % (47-70); Platelet Count 282 K/mm3 (150-450); RBC Distribution Width CV 14.1 % (11.6-14.6); RBC Distribution Width SD 43.8 fl (35.1-43.9); White Blood Count 7.7 K/mm3 (4.4-11.0)
[2022-09-22] MEDS: Ondansetron 4 MG/2 ML Vial IV (21:46)
[2022-09-22] MEDS: Morphine 2 MG/ML Syringe IV (21:46)
[2022-09-22 22:01] LABS: Anion Gap 7 (5-15); BUN 10 mg/dL (7-18); BUN/Creat Ratio 19.2 RATIO (10-20); Calcium,Total 9.6 mg/dL (8.5-10.1); Chloride 103 mmol/L (98-107); Creatinine, Serum 0.52 mg/dL (0.55-1.02); EST Glomerular Filtration Rate 127 mL/min (>60); Est Glom Filt Rate - Afr Amer 154 mL/min (>60); Estimated Creatinine Clearance 109.05 ml/min; Glucose 167 mg/dL (74-106); Potassium 3.7 mmol/L (3.5-5.1); Sodium Level 139 mmol/L (136-145)
[2022-09-22 22:12] LABS: Red Blood Cells-Urine > 100 SEEN /hpf (0-5); White Blood Cells 25-50 SEEN /hpf (0-5)
[2022-09-22 22:13] LABS: Bacteria 1+ /hpf (None Seen)
[2022-09-22] MEDS: Ceftriaxone 1 GM/50 ML BAG IV (22:41)
[2022-09-22 22:42] VITALS: PULSE 88; RESP 18; O2SAT 99
[2022-09-22 23:00] VITALS: RESP 18; O2SAT 100
== END 2022-09-22 23:14 | disposition home or self-care (01) ==
PROVIDERS: Physician Assistant; Emergency Provider Emergency Medicine; PCP Family Medicine; Visit Provider Emergency Medicine
DX: N30.00 Acute cystitis without hematuria (principal); E11.9 Type 2 diabetes mellitus without complications; N12 Tubulo-interstitial nephritis, not specified as acute or chronic; N20.0 Calculus of kidney; F17.290 Nicotine dependence, other tobacco product, uncomplicated; R31.9 Hematuria, unspecified
CPT/HCPCS: 74176; 80048; 81001; 85025; 87086; 87088; 87186; 96365; 96375; 99282; A4216; J2405

== ENCOUNTER → 2022-10-20 | Outpatient (CLI) | payer MEDICARE, SELFPAY ==
[2022-10-20 16:19] LABS: Microalbumin,Random Urine 11.6 mg/L (NO RANGE EST.); Microalbumin:Creatinine Ratio 43.9 mg/g CRE (<30 mg/g CRE)
[2022-10-20 17:59] LABS: Erythrocyte Sedimentation Rate 9 mm/hr (0-30)
[2022-10-20 22:02] LABS: ALB/GLOB Ratio 1.2 RATIO (0.9-2.4); AST(SGOT) 23 U/L (15-37); Alanine Aminotransfer ALT/SGPT 29 U/L (13-56); Albumin, Serum 3.8 g/dL (3.2-5.0); Alkaline Phosphatase 134 U/L (45-117); Anion Gap 11 (5-15); BUN 12 mg/dL (7-18); CRP < 2.90 mg/L (0.0-3.0); Calcium,Total 9.2 mg/dL (8.5-10.1); Chloride 103 mmol/L (98-107); Cholesterol 168 mg/dL (200); EST Glomerular Filtration Rate 173 mL/min (>60); Est Glom Filt Rate - Afr Amer 210 mL/min (>60); Estradiol < 11.0 pg/mL; Globulin 3.2 g/dL (2.2-4.2); Glucose 115 mg/dL (74-106); High Density Lipoprotein 51 mg/dL; Potassium 3.8 mmol/L (3.5-5.1); Rheumatoid Factor < 10.0 IU/mL (<15); Sodium Level 138 mmol/L (136-145); Thyroid Stim Hormone (TSH) 1.69 uIU/mL (0.358-3.74); Triglycerides 142 mg/dL; Very Low Density Lipoprotein 28 mg/dL (5-40)
[2022-10-20 22:40] LABS: Progesterone Level < 0.21 ng/mL (See Comment)
[2022-10-22 18:36] LABS: ANTINUCLEAR ANTIBODIES DIRECT Negative (Negative)
== END | disposition home or self-care (01) ==
LOC: MFPLAB 13:44
PROVIDERS: PCP Family Medicine; Visit Provider Family Medicine
DX: N95.1 Menopausal and female climacteric states (principal); M06.9 Rheumatoid arthritis, unspecified; E11.22 Type 2 diabetes mellitus with diabetic chronic kidney disease; N18.9 Chronic kidney disease, unspecified
CPT/HCPCS: 36415; 80053; 80061; 82043; 82570; 82670; 84144; 84443; 85652; 86038; 86140; 86431

== ENCOUNTER → 2022-10-24 | Outpatient (CLI) | payer MEDICARE, SELFPAY ==
[2022-11-02 08:30] LABS: Arsenic 7245 1 ug/L (0-9); Lead, Blood < 1.0 ug/dL (0.0-3.4); Mercury, Blood 85324 < 1.0 ug/L (0.0-14.9)
== END | disposition home or self-care (01) ==
LOC: LAB 14:06
PROVIDERS: PCP Family Medicine; Visit Provider Family Medicine
DX: R20.2 Paresthesia of skin (principal); Z79.899 Other long term (current) drug therapy
CPT/HCPCS: 36415; 82175; 83018; 83655; 83825

== ENCOUNTER → 2023-01-05 | Outpatient (CLI) | payer MEDICARE, SELFPAY ==
--- NOTE | 2023-01-05 10:02 | CDU_ITS ---
Reason For Study: Amaurosis fugax Rt. Velocities/BP Lt. Velocities/BP Prox CCA 79.5/21.2 cm/sec. Prox CCA 93.8/24.5 cm/sec. Mid CCA 77.3/24.5 cm/sec. Mid CCA 78.4/24.5 cm/sec. Dist CCA 91.6/25.6 cm/sec. Dist CCA 80.6/24.5 cm/sec. Prox ICA 78.4/21.2 cm/sec. Prox ICA 70/13.3 cm/sec. Mid ICA 82.8/23.4 cm/sec. Mid ICA 75.4/22.5 cm/sec. Dist ICA 71.8/23.4 cm/sec. Dist ICA 64.5/18.8 cm/sec. Rt. ICA/CCA = 1.04. Lt. ICA/CCA = 0.94. Prox ECA 96/19 cm/sec. Prox ECA 112/22.5 cm/sec. Rt. Vert. 41/10.2 cm/sec. Lt. Vert. 47.4/16 cm/sec. Right Extracranial There is intimal thickening but no significant atherosclerotic plaque noted in the right common carotid artery. There is heterogeneous, irregular atherosclerotic plaque noted in the right internal carotid artery. There is intimal thickening but no significant atherosclerotic plaque noted in the right external carotid artery. Antegrade flow is noted in the right vertebral artery. Left Extracranial There is intimal thickening but no significant atherosclerotic plaque noted in the left common carotid artery. There is intimal thickening but no significant atherosclerotic plaque noted in the left internal carotid artery. There is intimal thickening but no significant atherosclerotic plaque noted in the left external carotid artery. Antegrade flow is noted in the left vertebral artery. Procedure Carotid Duplex [id number]. This is a Carotid Duplex examination using B-mode, color flow and specral Doppler. Exam performed in department. VL/Carotid Duplex Ultrasound Interpretation Summary Minimal plaque at the proximal right internal carotid artery with less than 50% stenosis Less than 50% stenosis right external carotid artery Intimal thickening but no significant plaque at the proximal left internal sylvester tid artery with less than 50% stenosis Less than 50% stenosis left external carotid artery Patent antegrade vertebral arteries bilaterally Ordering Physician: Robby Alcala Referring Physician: Jermaine Miranda MD Performed By: Bibi Wallace RVT
== END | disposition home or self-care (01) ==
LOC: CVS 09:57
PROVIDERS: PCP Family Medicine; Referring Provider Ophthalmology; Visit Provider Ophthalmology
DX: G45.3 Amaurosis fugax (principal); H53.9 Unspecified visual disturbance
CPT/HCPCS: 93880

== ENCOUNTER → 2023-02-04 | Outpatient (CLI) | payer MEDICARE, SELFPAY ==
[2023-02-04 15:19] LABS: ALB/GLOB Ratio 1.2 RATIO (0.9-2.4); AST(SGOT) 23 U/L (15-37); Alanine Aminotransfer ALT/SGPT 28 U/L (13-56); Albumin, Serum 3.7 g/dL (3.2-5.0); Alkaline Phosphatase 124 U/L (45-117); Anion Gap 8 (5-15); BUN 15 mg/dL (7-18); BUN/Creat Ratio 32.3 RATIO (10-20); Calcium,Total 9.2 mg/dL (8.5-10.1); Chloride 104 mmol/L (98-107); Creatinine, Serum 0.46 mg/dL (0.55-1.02); EST Glomerular Filtration Rate 145 mL/min (>60); Est Glom Filt Rate - Afr Amer 176 mL/min (>60); Globulin 3.1 g/dL (2.2-4.2); Glucose 178 mg/dL (74-106); Protein, Total 6.8 g/dL (6.4-8.2); Sodium Level 140 mmol/L (136-145)
== END | disposition home or self-care (01) ==
LOC: MTLAB 12:34
PROVIDERS: PCP Family Medicine; Referring Provider Family Medicine; Visit Provider Family Medicine
DX: E11.22 Type 2 diabetes mellitus with diabetic chronic kidney disease (principal); N18.2 Chronic kidney disease, stage 2 (mild)
CPT/HCPCS: 36415; 80053

== ENCOUNTER 2023-02-06 12:11 | Emergency (ER) | payer MEDICARE, SELFPAY ==
[2023-02-06 12:11] VITALS: BP 158/79; PULSE 80; RESP 16; TEMP 36.2; O2SAT 98; BMI 25.4
--- NOTE | 2023-02-06 12:36 | EDS_ITS ---
HPI <HERB Izaguirre - Last Filed: 02/06/23 13:12> History of Present Illness Chief Complaint: Upper Extremity Injury Narrative Narrative: Patient presenting today due to ecchymosis in her right upper arm that she has had for the past 2 days. She states that she was doing laundry 2 days ago and felt a pop in her right upper arm. She has full range of motion in her right upper extremity, but it does hurt to lift heavy objects. She reports that it fe els like there is a lot of pressure in the area but it is not necessarily painful. She is on blood thinners and denies other injury. [facility] <HERB Izaguirre - Last Filed: 02/06/23 13:12> [facility] Medical History Abdominal hernia Diabetes type 2, controlled MTHFR (methylene THF reductase) deficiency and homocystinuria JONI (obstructive sleep apnea) Osteoarthritis Rheumatoid arthritis Rotator cuff arthropathy of left shoulder Home Medications amlodipine 10 mg tablet 10 mg PO DAILY 04/25/14 [History Last Taken Unknown] calcium carbonate 500 mg calcium (1,250 mg) tablet (Oyster Shell Calcium 500) 500 mg PO DAILY@0800 04/25/14 [History Last Taken Unknown] potassium 99 mg tablet 99 mg PO DAILY 04/25/14 [History Last Taken Unknown] warfarin 2 mg tablet (Jantoven) 4 mg PO QODAY 04/25/14 [History Last Taken Unknown] diclofenac sodium 1 % topical gel (Voltaren) 1 inch TP DAILY PRN Joint Pain 01/12/15 [History Last Taken Unknown] folic acid 1 mg tablet 5 mg PO DAILY@0800 01/12/15 [History Last Taken Unknown] metformin 500 mg tablet 500 mg PO BIDCM 01/12/15 [History Last Taken Unknown] omeprazole 40 mg capsule,delayed release (Prilosec) 40 mg PO DAILY 01/12/15 [History Last Taken Unknown] topiramate 25 mg tablet 25 mg PO BID ##60 01/13/15 [Rx Last Taken Unknown] baclofen 10 mg tablet 10 mg Q8 02/12/21 [History Last Taken Unknown] candesartan 8 mg tablet 8 mg DAILY 02/12/21 [History Last Taken Unknown] hydrocodone-acetaminophen 5-325mg 5mg-325mg 1 tab PO Q4H PRN PRN Pain 2 days #10 TABLETS 02/12/21 [Rx Last Taken Unknown] montelukast 10 mg tablet 10 mg DAILY 02/12/21 [History Last Taken Unknown] nitroglycerin 0.4 mg sublingual tablet 0.4 mg PRN PRN Angina 02/12/21 [History Last Taken Unknown] tramadol 50 mg tablet 50 mg TID PRN PRN Pain 02/12/21 [History Last Taken Unkn own] cephalexin 500 mg capsule 500 mg PO Q6 7 days #28 caps 09/22/22 [Rx Last Taken Unknown] Allergy/AdvReac Type Severity Reaction Status Date / Time albuterol Allergy Chest Verified 02/06/23 12:11 tightness celecoxib [From Celebrex] Allergy Other Verified 02/06/23 12:11 feathers Allergy Hives Verified 02/06/23 12:11 Surgical History H/O hernia repair History of hysterectomy for benign disease Total knee replacement status Social History Smoking Status: Current some day smoker tobacco type: e-cigarettes ROS <HERB Izaguirre - Last Filed: 02/06/23 13:12> ROS ED Constitutional Constitutional ED: Denies chills or fever(s) Cardiovascular Cardiovascular: Denies chest pain Respiratory/Chest Respiratory/Chest: Denies cough or dyspnea Gastrointestinal Gastrointestinal: Denies abdominal pain, nausea or vomiting Musculoskeletal Musculoskeletal: Reports myalgias; Denies arthralgias Integumentary Denies Abrasions or rash Neurologic Neurologic: Denies paresthesias or weakness Psychiatric Psychiatric: Denies anxiety or depression Hematologic/Lymphatic Hematologic/Lymphatic: Reports easy bleeding and easy bruising EXAM <HERB Izaguirre - Last Filed: 02/06/23 13:12> Physical Exam Const Vital Signs: 02/06/23 12:11 Temperature 97.1 F L Temperature Source Temporal Pulse Rate 80 Respiratory Rate 16 Blood Pressure 158/79 H Blood Pressure Mean 105 Pulse Ox 98 Positive well nourished, well developed and no apparent distress General Appearance ED: well developed HEENT Reports normocephalic and head/scalp atraumatic Mouth ED: Yes moist mucous membranes normal Eyes PERRL and EOMs intact bilaterally Neck full ROM and supple Chest Wall inspection of chest normal Resp normal respiratory effort and clear to auscultation bilaterally Cardio regular rate and regular rhythm GI soft to palpation, non-tender, non-distended and no masses Back/Spine normal ROM and normal to inspection Extremity full ROM Extremity Narrative: Ecchymosis to the midportion of the right upper extremity, no edema, biceps tendon still intact distally, no obvious deformity, radial pulses 2+ and equal bilaterally, good capillary refill, sensation intact. Full range of motion in the right shoulder and right elbow. Strength 5/5 in the upper extremities. Neuro oriented x3, CN's II-XII intact bilaterally, moves all extremities, no focal motor deficits and no sensory deficits noted Sensorium / Orientation: awake and alert Motor Exam: strength 5/5 throughout Psych mental status grossly normal and thought process normal Skin no rashes or lesions noted and no wounds [facility] <HERB Izaguirre - Last Filed: 02/06/23 13:12> [facility] Narrative Medical decision making narrative: Patient here today due to ecchymosis in her right upper extremity after she was doing laundry 2 days ago and felt a pop in her right upper arm. Patient has significant ecchymosis to her right upper extremity, however, she is on blood thinners and has been using heat on her arm. No obvious deformity, I do suspect a partial biceps tendon tear. I do not feel that any x-rays are indicated as patient did not have any injury to her arm and she does not have any bony tenderness. She does not want a sling, she does not want anything for pain. She will be given an orthopedic referral for follow-up and RICE instructions. She will be discharged in stable condition and is comfortable with plan. <Dr. Nilesh Acuna DO - Last Filed: 02/08/23 16:56> [facility] Narrative Medical decision making narrative: Patient here today due to ecchymosis in her right upper extremity after she was doing laundry 2 days ago and felt a pop in her right upper arm. Patient has significant ecchymosis to her right upper extremity, however, she is on blood thinners and has been using heat on her arm. No obvious deformity, I do suspect a partial biceps tendon tear. I do not feel that any x-rays are indicated as patient did not have any injury to her arm and she does not have any bony tenderness. She does not want a sling, she does not want anything for pain. She will be given an orthopedic referral for follow-up and RICE instructions. She will be discharged in stable condition and is comfortable with plan. Education on biceps tendon tear was done at bedside and on discharge paperwork. Patient will follow-up with orthopedic surgery. Treatment and Re-Evaluation Narrative: I, Dr Acuna, have reviewed the above progress note and course of action in the ER; agree with the above. I have personally seen and evaluated this patient, gone over history and physical, and discussed disposition and treatment plan with the patient. Discharge Plan Triage Chief Complaint: Upper Extremity Injury ED Midlevel Provider: Cordelia Ellington ED Provider: Nilesh Acuna Dx/Rx/DC Orders Clinical Impression: Pain in right upper arm, Arm bruise Instructions: ED RICE Prescriptions: No Action potassium 99 MG tablet 99 mg PO DAILY Label Comments: supplement calcium carbonate [Oyster Shell Calcium 500] 500 MG tablet 500 mg PO DAILY@0800 Label Comments: supplement amlodipine 10 MG tablet 10 mg PO DAILY Label Comments: blood pressure warfarin [Jantoven] 2 MG tablet 4 mg PO QODAY Label Comments: MOWEFR blood thinner metformin 500 MG tablet 500 mg PO BIDCM Label Comments: diabetes folic acid 1 MG tablet 5 mg PO DAILY@0800 Label Comments: SUPPLEMENT omeprazole [Prilosec] 40 MG capsule,delayed release(DR/EC) 40 mg PO DAILY Label Comments: acid reflux diclofenac sodium [Voltaren] 100 GM gel 1 inch TP DAILY PRN (Reason: Joint Pain) Label Comments: pain topiramate 25 MG tablet 25 mg PO BID Qty: 60 0RF Label Comments: migraines tramadol 50 mg tablet 50 mg TID PRN PRN (Reason: Pain) Label Comments: TAKE 1 TABLET EVERY 8 HOURS NEEDED FOR 90 DAYS baclofen 10 mg tablet 10 mg Q8 nitroglycerin 0.4 mg tablet, sublingual 0.4 mg PRN PRN (Reason: Angina) Rx Instructions: x3 q 5 min montelukast 10 mg tablet 10 mg DAILY candesartan 8 mg tablet 8 mg DAILY hydrocodone-acetaminophen [hydrocodone-acetaminophen] 1 TABLET tablet 1 tab PO Q4H PRN PRN (Reason: Pain) 2 Days Qty: 10 0RF cephalexin 500 mg capsule 500 mg PO Q6 7 Days Qty: 28 0RF Primary Care Provider: Jermaine Miranda Referrals: Jermaine Miranda MD [Primary Care Provider] - Barry Ruano DO [Med Staff - Active Staff] - 3-5 Days Activity Restrictions/Additional Instructions: Follow-up with the orthopedic doctor for possible biceps tendon tear. Disposition Disposition: Home, Self Care Discharge Date/Time: 02/06/23 13:02
== END 2023-02-06 13:02 | disposition home or self-care (01) ==
PROVIDERS: Emergency Provider Emergency Medicine; PCP Family Medicine; Visit Provider Emergency Medicine
DX: S40.021A Contusion of right upper arm, initial encounter (principal); E11.9 Type 2 diabetes mellitus without complications; F17.290 Nicotine dependence, other tobacco product, uncomplicated; X58.XXXA Exposure to other specified factors, initial encounter; Y93.E2 Activity, laundry
CPT/HCPCS: 99282

== ENCOUNTER 2023-02-10 14:38 | Outpatient (RCR) | payer MEDICARE, SELFPAY ==
[2023-02-10 17:46] LABS: International Normalized Ratio 2.3; Prothrombin Time (Protime)PT. 25.4 SECONDS (11.7-14.9)
== END 2023-02-10 15:38 | disposition home or self-care (01) ==
LOC: MTLAB 14:38
PROVIDERS: PCP Family Medicine; Referring Provider Family Medicine; Visit Provider Family Medicine
DX: E72.12 Methylenetetrahydrofolate reductase deficiency (principal); I66.9 Occlusion and stenosis of unspecified cerebral artery
CPT/HCPCS: 36415; 85610

== ENCOUNTER → 2023-05-19 | Outpatient (CLI) | payer MEDICARE, SELFPAY ==
[2023-05-19 09:38] LABS: Absolute Lymphocyte Count 1.35 X10^3/uL (0.83-4.51); Absolute Neutrophil Count 3.8 X10^3/uL (2.0-7.7); Basophil# 0.04 X10^3/uL; Basophil% 0.7 % (0-1); Eosinophil# 0.15 X10^3/uL; Eosinophils% 2.6 % (0-5); Hematocrit 41.2 % (37-47); Hemoglobin 12.8 g/dL (12.0-15.0); Lymphocyte # 1.35 X10^3/ul (0.83-4.51); Lymphocyte % 23.3 % (19-41); Mean Corp Hgb Conc 31.1 g/dL (32-36); Mean Corpuscular Hgb 27.1 pg (27.0-32.0); Mean Corpuscular Volume 87.1 fL (81-99); Mean Platelet Vol. 10.2 fl (6.2-12.0); Monocyte# 0.44 X10^3/uL; Monocyte% 7.6 % (0-10); NRBC Flagged by Analyzer 0 % (0-5); Neutrophil # 3.78 X10^3/uL (2.7-7.7); Neutrophil % 65.3 % (47-70); Platelet Count 268 K/mm3 (150-450); RBC Distribution Width CV 13.9 % (11.6-14.6); RBC Distribution Width SD 44.3 fl (35.1-43.9); Red Blood Count 4.73 M/mm3 (4.2-5.4); White Blood Count 5.8 K/mm3 (4.4-11.0)
[2023-05-19 10:19] LABS: Microalbumin,Random Urine 7.8 mg/L (NO RANGE EST.); Microalbumin:Creatinine Ratio 12.8 mg/g CRE (<30 mg/g CRE)
[2023-05-19 10:22] LABS: AST(SGOT) 19 U/L (15-37); Alanine Aminotransfer ALT/SGPT 25 U/L (13-56); Albumin, Serum 3.6 g/dL (3.2-5.0); Alkaline Phosphatase 160 U/L (45-117); Anion Gap 4 (5-15); BUN 7 mg/dL (7-18); BUN/Creat Ratio 15.8 RATIO (10-20); Chloride 106 mmol/L (98-107); Creatinine, Serum 0.44 mg/dL (0.55-1.02); EST Glomerular Filtration Rate 154 mL/min (>60); Est Glom Filt Rate - Afr Amer 186 mL/min (>60); Globulin 3.5 g/dL (2.2-4.2); Glucose 147 mg/dL (74-106); Protein, Total 7.1 g/dL (6.4-8.2); Sodium Level 141 mmol/L (136-145); Thyroid Stim Hormone (TSH) 2.65 uIU/mL (0.358-3.74)
== END | disposition home or self-care (01) ==
PROVIDERS: PCP Family Medicine; Referring Provider Family Medicine; Visit Provider Family Medicine
DX: M51.37 Other intervertebral disc degeneration, lumbosacral region (principal); E11.22 Type 2 diabetes mellitus with diabetic chronic kidney disease; N18.9 Chronic kidney disease, unspecified
CPT/HCPCS: 36415; 80053; 82043; 82570; 84443; 85025

== ENCOUNTER → 2023-09-15 | Outpatient (CLI) | payer MEDICARE, SELFPAY ==
--- NOTE | 2023-09-15 13:07 | BI_ITS ---
MAMMOGRAPHY - BILATERAL SCREENING REASON FOR EXAM: Female, 62 years old. Routine annual screening examination. PERTINENT HISTORY: Non-contributory. TECHNIQUE: Digital bilateral breast alba (3D mammographic acquisition) in the CC and MLO projections. 2-D mediolateral oblique (MLO) and craniocaudad (CC) views of both breasts were obtained. CAD: Full Field Digital Mammography with Computer Added Detection was performed. COMPARISON: Comparison is made with prior study dated May 26, 2022 and March 14, 2021. FINDINGS: Breast Composition: The breasts are almost entirely fatty. There are no dominant masses or suspicious calcifications. No other significant abnormalities are identified. There has been no significant change since the prior study. BI/SCRN MAMM (CAD)W/LABA BILAT IMPRESSION: Stable bilateral screening mammogram. Yearly follow-up mammogram recommended. (A) ASSESSMENT CATEGORY: BIRADS Category 1: Negative. A letter regarding these results will be sent to the patient by the facility within 30 days. Approximately 10% of breast cancers are not detected by mammography. A normal mammogram should not delay biopsy of a clinically suspicious abnormality. [id number] Electronically Signed: Wesley Wetzel MD at 11:27 EST ,
--- NOTE | 2023-09-15 13:11 | BD_ITS ---
STUDY: DUAL ENERGY X-RAY ABSORPTIOMETRY / DXA REASON FOR EXAM: Female, 62 years old. V76.12ScreeningBONE DENSITY REASON FOR EXAM TECHNIQUE: Bone Mineral Density (BMD) measurements of lumbar spine and bilateral hips were obtained. COMPARISON: Comparison is made with prior study dated March 14, 2021. FINDINGS: Lumbar Spine (L1-L4): g/cm2 (0.927) / T-score (-0.5) / Z-score (0.9) Findings are suggestive of normal bone density with a low fracture risk. Left Femur Total: g/cm2 (0.744) / T-score (-1.6) / Z-score (-0.6) Left Femoral Neck: g/cm2 (0.695) / T-score (-1.4) / Z-score (-0.1) Right Femur Total: g/cm2 (0.767) / T-score (-1.4) / Z-score (-0.4) Right Femoral Neck: g/cm2 (0.756) / T-score (-0.8) / Z-score (0.5) The T-Scores on the most recent prior examination were: Lumbar Spine (L1-L4): There has been worsening of bone density since the previous examination. Left Femur Total: which represents a worsening of 12.1%. Right Femur Total: which represents a worsening of 10.1%. BD/Dexa Bone Density Study IMPRESSION: The patient is considered as outlined below according to World John Organization (WHO) criteria with a moderate fracture risk. There has been worsening of bone density since the previous examination. Reference Information: The T-score is the number of standard deviations above or below the standard which is normal for young adults at their peak bone mineral density. The World Health Organization (WHO) interprets the T-scores as follows: Above -1 Normal bone density Between -1 and -2.5 Osteopenia Equal to / or below -2.5 Osteoporosis As a practical clinical guideline, osteopenia may be graded as follows: Mild -1 through -1.5 Moderate -1.6 through -2.0 Severe -2.1 through -2.4 The Z-score is the number of standard deviations above or below age-matched controls. A Z-score of less than -1.5 would be considered abnormal. References: 1. NIH Osteoporosis and Related Bone Diseases www osteo.org 2. International Society for Clinical Densitometry www iscd.org 3. National Osteoporosis Foundation www nof.org Electronically Signed: Wesley Wetzel MD at 14:39 EST ,
--- NOTE | 2023-09-15 13:52 | CT_ITS ---
EXAM: CT CHEST, LUNG CANCER SCREENING WITHOUT INTRAVENOUS CONTRAST CLINICAL INDICATION: screening TECHNIQUE: Helically acquired images were obtained of the chest without intravenous contrast using low dose (LDCT) lung cancer screening protocol. This CT exam was performed using one or more of the following dose reduction techniques: automated exposure control, adjustment of the mA and/or kV according to patient size, and/or use of iterative reconstruction technique. COMPARISON: No relevant prior studies available. FINDINGS: LUNGS AND PLEURAL SPACES: Unremarkable. No mass. No consolidation or edema. No pleural effusion or thickening. No pneumothorax. HEART: Unremarkable. Heart size is normal. No pericardial effusion. No significant coronary artery calcifications. MEDIASTINUM: Unremarkable. No mediastinal or hilar adenopathy. Esophagus is unremarkable. No hiatal hernia. THYROID: Unremarkable. No thyroid lesions. BONES/JOINTS: Unremarkable. No suspicious lytic or blastic abnormality. VASCULATURE: Unremarkable. Thoracic aorta is non-dilated. LYMPH NODES: Unremarkable. No enlarged lymph nodes. CT/Low Dose CT Lung Screening IMPRESSION: Normal chest CT. Lung-RADS score: 1 - Negative. Recommend continued annual screening with a low-dose CT (LDCT) in 12 months. Electronically Signed: Edson Shaikh MD at 23:13 EST ,
== END | disposition home or self-care (01) ==
PROVIDERS: PCP Family Medicine; Referring Provider Nurse Practitioner Family; Visit Provider Nurse Practitioner Family
DX: Z12.31 Encounter for screening mammogram for malignant neoplasm of breast (principal); Z87.891 Personal history of nicotine dependence; Z13.820 Encounter for screening for osteoporosis; Z78.0 Asymptomatic menopausal state
CPT/HCPCS: 71271; 77063; 77067; 77080

== ENCOUNTER → 2023-10-05 | Outpatient (CLI) | payer MEDICARE, SELFPAY ==
[2023-10-05 15:32] LABS: Prothrombin Time (Protime)PT. 23.2 SECONDS (11.7-14.9)
[2023-10-05 16:05] LABS: ALB/GLOB Ratio 1.2 RATIO (0.9-2.4); AST(SGOT) 26 U/L (15-37); Alanine Aminotransfer ALT/SGPT 28 U/L (13-56); Alkaline Phosphatase 167 U/L (45-117); Anion Gap 8 (5-15); BUN 13 mg/dL (7-18); Calcium,Total 10.2 mg/dL (8.5-10.1); Chloride 104 mmol/L (98-107); Creatinine, Serum 0.52 mg/dL (0.55-1.02); EST Glomerular Filtration Rate 128 mL/min (>60); Est Glom Filt Rate - Afr Amer 155 mL/min (>60); Globulin 3.3 g/dL (2.2-4.2); Glucose 120 mg/dL (74-106); Potassium 3.8 mmol/L (3.5-5.1); Protein, Total 7.3 g/dL (6.4-8.2); Sodium Level 139 mmol/L (136-145)
[2023-10-05 16:28] LABS: Hemoglobin 13.5 g/dL (12.0-15.0); Mean Corp Hgb Conc 31.4 g/dL (32-36); Mean Corpuscular Hgb 25.8 pg (27.0-32.0); Mean Corpuscular Volume 82.1 fL (81-99); Mean Platelet Vol. 10.8 fl (6.2-12.0); Platelet Count 344 K/mm3 (150-450); RBC Distribution Width CV 14.6 % (11.6-14.6); RBC Distribution Width SD 43.2 fl (35.1-43.9); Red Blood Count 5.24 M/mm3 (4.2-5.4); White Blood Count 7.4 K/mm3 (4.4-11.0)
== END | disposition home or self-care (01) ==
LOC: MFPLAB 11:35
PROVIDERS: Nurse Practitioner Family; PCP Family Medicine; Visit Provider Family Medicine
DX: E11.319 Type 2 diabetes mellitus with unspecified diabetic retinopathy without macular edema (principal); Z79.01 Long term (current) use of anticoagulants
CPT/HCPCS: 36415; 80053; 85027; 85610

== ENCOUNTER → 2024-05-02 | Outpatient (CLI) | payer MEDICARE, SELFPAY ==
[2024-05-02 12:43] LABS: Absolute Lymphocyte Count 1.52 X10^3/uL (0.83-4.51); Absolute Neutrophil Count 3.6 X10^3/uL (2.0-7.7); Basophil# 0.04 X10^3/uL; Basophil% 0.7 % (0-1); Eosinophils% 3.4 % (0-5); Hematocrit 39.2 % (37-47); Lymphocyte # 1.52 X10^3/ul (0.83-4.51); Lymphocyte % 26.2 % (19-41); Mean Corp Hgb Conc 30.6 g/dL (32-36); Mean Corpuscular Hgb 23.7 pg (27.0-32.0); Mean Corpuscular Volume 77.3 fL (81-99); Mean Platelet Vol. 9.9 fl (6.2-12.0); Monocyte# 0.47 X10^3/uL; Monocyte% 8.1 % (0-10); NRBC Flagged by Analyzer 0 % (0-5); Neutrophil # 3.56 X10^3/uL (2.7-7.7); Neutrophil % 61.3 % (47-70); Platelet Count 284 K/mm3 (150-450); RBC Distribution Width CV 16.1 % (11.6-14.6); RBC Distribution Width SD 44.9 fl (35.1-43.9); Red Blood Count 5.07 M/mm3 (4.2-5.4); White Blood Count 5.8 K/mm3 (4.4-11.0)
[2024-05-02 13:17] LABS: Hemoglobin A1c 7.8 % (3.8-5.6)
[2024-05-02 13:40] LABS: ALB/GLOB Ratio 1.1 RATIO (0.9-2.4); AST(SGOT) 29 U/L (15-37); Alanine Aminotransfer ALT/SGPT 34 U/L (13-56); Albumin, Serum 3.6 g/dL (3.2-5.0); Alkaline Phosphatase 196 U/L (45-117); Anion Gap 10 (5-15); BUN 10 mg/dL (7-18); BUN/Creat Ratio 20.2 RATIO (10-20); Calcium,Total 9.1 mg/dL (8.5-10.1); Chloride 106 mmol/L (98-107); EST Glomerular Filtration Rate 135 mL/min (>60); Est Glom Filt Rate - Afr Amer 163 mL/min (>60); Globulin 3.4 g/dL (2.2-4.2); Glucose 148 mg/dL (74-106); Potassium 3.8 mmol/L (3.5-5.1); Sodium Level 140 mmol/L (136-145)
== END | disposition home or self-care (01) ==
LOC: LAB 12:16
PROVIDERS: PCP Family Medicine; Referring Provider Family Medicine; Visit Provider Family Medicine
DX: E72.12 Methylenetetrahydrofolate reductase deficiency (principal); E11.3299 Type 2 diabetes mellitus with mild nonproliferative diabetic retinopathy without macular edema, unspecified eye
CPT/HCPCS: 36415; 80053; 83036; 85025

== ENCOUNTER → 2024-10-11 | Outpatient (CLI) | payer MEDICARE, SELFPAY ==
[2024-10-11 08:58] LABS: Absolute Lymphocyte Count 1.54 X10^3/uL (0.83-4.51); Absolute Neutrophil Count 1.2 X10^3/uL (2.0-7.7); Basophil# 0.02 X10^3/uL; Basophil% 0.6 % (0-1); Eosinophils% 3.1 % (0-5); Hematocrit 38.6 % (37-47); Lymphocyte # 1.54 X10^3/ul (0.83-4.51); Lymphocyte % 47.1 % (19-41); Mean Corp Hgb Conc 31.1 g/dL (32-36); Mean Corpuscular Hgb 23.3 pg (27.0-32.0); Mean Corpuscular Volume 74.8 fL (81-99); Mean Platelet Vol. 10.2 fl (6.2-12.0); Monocyte# 0.38 X10^3/uL; Monocyte% 11.6 % (0-10); NRBC Flagged by Analyzer 0 % (0-5); Neutrophil # 1.22 X10^3/uL (2.7-7.7); Neutrophil % 37.3 % (47-70); Platelet Count 255 K/mm3 (150-450); RBC Distribution Width CV 17.2 % (11.6-14.6); RBC Distribution Width SD 45.1 fl (35.1-43.9); Red Blood Count 5.16 M/mm3 (4.2-5.4); White Blood Count 3.3 K/mm3 (4.4-11.0)
[2024-10-11 09:26] LABS: Vitamin B12 556 pg/mL (211-911)
[2024-10-11 09:37] LABS: Microalbumin,Random Urine 56.1 mg/L (NO RANGE EST.); Microalbumin:Creatinine Ratio 22.4 mg/g CRE (<30 mg/g CRE)
[2024-10-11 10:14] LABS: Hemoglobin A1c 6.7 % (3.8-5.6)
[2024-10-11 11:06] LABS: ALB/GLOB Ratio 1.2 RATIO (0.9-2.4); AST(SGOT) 31 U/L (15-37); Alanine Aminotransfer ALT/SGPT 40 U/L (13-56); Albumin, Serum 3.7 g/dL (3.2-5.0); Alkaline Phosphatase 142 U/L (45-117); Anion Gap 8 (5-15); BUN 10 mg/dL (7-18); BUN/Creat Ratio 15.2 RATIO (10-20); Calcium,Total 9.5 mg/dL (8.5-10.1); Chloride 105 mmol/L (98-107); Cholesterol 117 mg/dL (200); Creatinine, Serum 0.66 mg/dL (0.55-1.02); EST Glomerular Filtration Rate 97 mL/min (>60); Est Glom Filt Rate - Afr Amer 118 mL/min (>60); Globulin 3.2 g/dL (2.2-4.2); Glucose 129 mg/dL (74-106); High Density Lipoprotein 41 mg/dL; Potassium 3.8 mmol/L (3.5-5.1); Protein, Total 6.9 g/dL (6.4-8.2); Rheumatoid Factor < 10.0 IU/mL (<15); Sodium Level 138 mmol/L (136-145); Triglycerides 84 mg/dL; Very Low Density Lipoprotein 17 mg/dL (5-40)
== END | disposition home or self-care (01) ==
LOC: LAB 08:31
PROVIDERS: PCP Family Medicine; Referring Provider Family Medicine; Visit Provider Family Medicine
DX: E11.22 Type 2 diabetes mellitus with diabetic chronic kidney disease (principal); M06.9 Rheumatoid arthritis, unspecified; N18.2 Chronic kidney disease, stage 2 (mild); E72.12 Methylenetetrahydrofolate reductase deficiency; G89.4 Chronic pain syndrome
CPT/HCPCS: 36415; 80053; 80061; 82043; 82570; 82607; 82746; 83036; 85025; 86431

== ENCOUNTER 2024-11-12 08:18 | Emergency (ER) | payer MEDICARE, SELFPAY ==
[2024-11-12 08:20] VITALS: BP 148/89; PULSE 92; RESP 14; TEMP 36.6; O2SAT 98; BMI 26.7
--- NOTE | 2024-11-12 08:36 | EKG12_ITS ---
Test Reason : GENERAL Blood Pressure : */* mmHG Vent. Rate : 86 BPM Atrial Rate : 86 BPM P-R Int : 112 ms QRS Dur : 90 ms QT Int : 380 ms P-R-T Axes : 52 25 30 degrees QTcB Int : 454 ms Normal sinus rhythm Normal ECG Confirmed by Omar Florez ([id number]), graphics editor JARVIS KUMARI ([id number]) on 11/14/2024 6:59:48 AM Referred By: Confirmed By: Omar Florez
[2024-11-12] MEDS: 0.9% Normal Saline (1000mL) 1,000 ML 999 ML IV (09:01)
[2024-11-12] MEDS: Ondansetron 4 MG/2 ML Vial IV (09:02)
[2024-11-12] MEDS: Morphine 4 MG/ML Syringe IV (09:02)
--- NOTE | 2024-11-12 09:02 | EDS_ITS ---
HPI History of Present Illness Chief Complaint: Abd Pain Narrative Narrative: Patient is a 63-year-old female past medical history type 2 diabetes, MTHFR, rheumatoid arthritis, JONI who presents to the emergency department chief complaint of abdominal pain. Patient states that she has had abdominal pain on and off for about a month now however her abdominal pain is seem to be worsening was evaluated by a physician last night. She states that this morning her abdominal pain intensified significantly prompting her to come here for the valuation management. Patient rates her pain a 8 out of 10. Patient's states that she had a umbilical hernia repair several years ago and but denies any other abdominal surgeries. Patient states that she is passing gas. [facility] Medical History Diabetes type 2, controlled MTHFR (methylene THF reductase) deficiency and homocystinuria Rotator cuff arthropathy of left shoulder Osteoarthritis Rheumatoid arthritis Abdominal hernia JONI (obstructive sleep apnea) Home Medications ?Medication ?Instructions ?Recorded ?Last Taken ?Type amlodipine 10 mg tablet 10 mg PO DAILY 04/25/14 Unkn own History calcium carbonate (Oyster Shell 500 mg PO DAILY@0800 0 04/25/14 Unknown History Calcium 500) potassium 99 mg tablet 99 mg PO DAILY 04/25/14 Unkn own History warfarin 2 mg tablet (Jantoven) 4 mg PO QODAY 04/25/14 Unknown History diclofenac sodium 1 % topical gel 1 inch TP DAILY PRN Joint Pain 01/12/15 Unknown History (Voltaren) folic acid 1 mg tablet 5 mg PO DAILY@0800 01/12/15 Unknown History metformin 500 mg tablet 500 mg PO BIDCM 01/12/15 Unk nown History omeprazole 40 mg capsule,delayed 40 mg PO DAILY Unknown History release (Prilosec) topiramate 25 mg tablet 25 mg PO BID ##60 01/13/15 U nknown Rx baclofen 10 mg tablet 10 mg Q8 02/12/21 Unknown Hi story candesartan 8 mg tablet 8 mg DAILY 02/12/21 Unknown History hydrocodone-acetaminophen 5-325mg 1 tab PO Q4H PRN PRN Pain 2 days 02/12/21 Unknown Rx 5mg-325mg #10 TABLETS montelukast 10 mg tablet 10 mg DAILY 02/12/21 Unknown History nitroglycerin 0.4 mg sublingual 0.4 mg PRN PRN Angina 02/12/21 Unknown History tablet tramadol 50 mg tablet 50 mg TID PRN PRN Pain 02/12 Unknown History cephalexin 500 mg capsule 500 mg PO Q6 7 days #28 caps 09/22/22 Unknown Rx ondansetron 4 mg disintegrating 4 mg PO Q6H PRN nausea and 11/12/24 Unknown Rx tablet vomiting #20 tabs oxycodone-acetaminophen 5 mg-325 1 tab PO Q6H PRN pain 3 days #12 11/12/24 Unknown Rx mg tablet (Endocet) tabs tamsulosin 0.4 mg capsule (Flomax) 0.4 mg PO DAILY #14 caps 11/12/24 Unknown Rx Allergy/AdvReac Type Severity Reaction Status Date / Time albuterol Allergy Chest Verified 02/06/23 12:11 tightness celecoxib (From Celebrex) Allergy Other Verified 02/06/23 12:11 feathers Allergy Hives Verified 02/06/23 12:11 Surgical History H/O hernia repair Total knee replacement status History of hysterectomy for benign disease Social History Smoking Status: Current some day smoker tobacco type: e-cigarettes ROS ROS ED ROS Narrative Constitutional: Denies fevers, chills, headaches, lightness, dizziness Cardiovascular: Denies chest pain or palpitations Respiratory: Denies cough or wheezing shortness of breath Abdomen: Complains of abdominal pain nausea as noted above as well as vomiting denies diarrhea : Denies urinary symptoms Neurological: Denies numbness, weakness, tingling Musculoskeletal: Denies back pain Skin: Denies rashes or lesions EXAM Physical Exam Narrative Exam Narrative: General: Patient lying in bed rest comfortably did not appear to be acute distress Head: Atraumatic, normocephalic Eyes: PERRL bilaterally, EOMI bilaterally, no conjunctival injection noted Neck: Soft, supple, trachea midline Cardiovascular: Regular rate and rhythm no murmurs gallops rubs noted Respiratory: Clear to auscultation bilaterally Abdomen: Soft, nondistended, tender to palpation the right lower quadrant no rebound or guarding on exam Extremities: +5/5 strength noted in the bilateral upper and lower extremities, radial pulses +2/4 in the bilateral upper extremities Neurological: Patient following commands knew that she was at [facility] year is 2024 Skin: Warm, dry, intact no rashes or lesions noted Const Vital Signs: 11/12/24 08:20 11/12/24 10:55 Temperature 98 F 98.4 F Temperature Source Temporal Oral Pulse Rate 92 78 Respiratory Rate 14 16 Blood Pressure 148/89 H 117/71 Blood Pressure Mean 108 86 Pulse Ox 98 98 Oxygen Delivery Method Room Air Room Air MDM MDM MDM Narrative Medical decision making narrative: Patient is a 63-year-old female who presents to the emergency department the chief complaint of abdominal pain. On the differential diagnose includes but not limited to ACS, bowel obstruction, pancreatitis, appendicitis, cholecystitis, bowel obstruction, cyclical vomiting syndrome from marijuana use, AAA. Once workup is obtained reviewed she will be reevaluated. Patient being IV fluids morphine Zofran Patient CBC reviewed showed no evidence leukocytosis white blood count normal 5.1, he was 13, plate count normal at 331. Patient sodium normal 139, potassium normal 3.8, creatinine normal at 0.57. Patient's AST and ALT were 36 and 34 respectively. Patient lipase normal at 19, urinalysis showed no evidence of infection. Patient CT ab pelvis with IV contrast showed mild right hydronephrosis and hydroureter with obstructive calculus in the distal ureter measuring 3 mm in nature, hepatic steatosis colonic diverticulosis with no e vidence of diverticulitis. Patient is feeling better she would go home at this point time. Patient will be given prescriptions for Percocet and Zofran for severe pain and was advised to not operate anything under the influence of the Percocet. She was advised to return with worsening symptoms or concerns. Prescription for Flomax was also sent. All question concerns answered she was discharged home in stable condition. Lab Data Labs: Laboratory Results - last 24 hr 11/12/24 11/12/24 08:55 10:30 WBC 5.1 RBC 5.46 H Hgb 13.0 Hct 41.3 MCV 75.6 L MCH 23.8 L MCHC 31.5 L RDW Std Deviation 47.5 H RDW Coeff of Gilberto 18.6 H Plt Count 331 MPV 10.2 Immature Gran % (Auto) 0.400 Neut % (Auto) 59.7 Lymph % (Auto) 29.9 [place] % (Auto) 8.2 Eos % (Auto) 1.2 Baso % (Auto) 0.6 Absolute Neuts (auto) 3.1 Absolute Lymphs (auto) 1.53 Nucleated RBC % 0 Sodium 139 Potassium 3.8 Chloride Direct 101 Carbon Dioxide 24.0 Anion Gap 14 BUN 10 Creatinine 0.57 L Estim Creat Clear Calc 103.74 Est GFR (MDRD) Non-Af 103 BUN/Creatinine Ratio 17.3 Glucose 137 H Calcium 9.7 Total Bilirubin 0.66 AST 36 H ALT 34 Alkaline Phosphatase 144 H Total Protein 7.3 Albumin 4.6 Globulin 2.7 Albumin/Globulin Ratio 1.7 Lipase 19 Urine Color Yellow Urine Clarity Sl. Cloudy Urine pH 7.0 Ur Specific [place] 1.010 Urine Protein Negative Urine Glucose (UA) Normal Urine Ketones Negative Urine Occult Blood Negative Urine Nitrite Negative Urine Bilirubin Negative Urine Urobilinogen Normal Ur Leukocyte Esterase Negative Urine RBC 0 SEEN Urine WBC 0 SEEN Ur Squamous Epith Cells 0-5 SEEN Urine Bacteria 0 SEEN Urine Mucus 0 SEEN Radiography Diagnostic Testing: Clinical Impression(s) from Imaging Studies Abdomen/Pelvis CT 11/12/24 09:45 IMPRESSION: 1. Mild right hydronephrosis and hydroureter with obstructive calculus in the distal ureter. 2. Hepatic steatosis 3. Colonic diverticulosis with no evidence of diverticulitis 4. Other findings as above One or more dose reduction techniques were used (e.g., Automated exposure control, adjustment of the mA and/or kV according to patient size, use of iterative reconstruction technique). [facility] Triage Chief Complaint: Abd Pain ED Provider: Matt Zapien Dx/Rx/DC Orders Clinical Impression: Urolithiasis, Nausea & vomiting Prescriptions: New tamsulosin [Flomax] 0.4 mg capsule 0.4 mg PO DAILY Qty: 14 0RF oxycodone-acetaminophen [Endocet] 5-325 mg tablet 1 tab PO Q6H PRN (Reason: pain) 3 Days Qty: 12 0RF ondansetron 4 mg tablet,disintegrating 4 mg PO Q6H PRN (Reason: nausea and vomiting) Qty: 20 0RF No Action potassium 99 MG tablet 99 mg PO DAILY Patient Comments: supplement calcium carbonate [Oyster Shell Calcium 500] 500 MG tablet 500 mg PO DAILY@0800 Patient Comments: supplement amlodipine 10 MG tablet 10 mg PO DAILY Patient Comments: blood pressure warfarin [Jantoven] 2 MG tablet 4 mg PO QODAY Patient Comments: MOWEFR blood thinner metformin 500 MG tablet 500 mg PO BIDCM Patient Comments: diabetes folic acid 1 MG tablet 5 mg PO DAILY@0800 Patient Comments: SUPPLEMENT omeprazole [Prilosec] 40 MG capsule,delayed release(DR/EC) 40 mg PO DAILY Patient Comments: acid reflux diclofenac sodium [Voltaren] 100 GM gel 1 inch TP DAILY PRN (Reason: Joint Pain) Patient Comments: pain topiramate 25 MG tablet 25 mg PO BID Qty: 60 0RF Patient Comments: migraines tramadol 50 mg tablet 50 mg TID PRN PRN (Reason: Pain) Patient Comments: TAKE 1 TABLET EVERY 8 HOURS NEEDED FOR 90 DAYS baclofen 10 mg tablet 10 mg Q8 nitroglycerin 0.4 mg tablet, sublingual 0.4 mg PRN PRN (Reason: Angina) Rx Instructions: x3 q 5 min montelukast 10 mg tablet 10 mg DAILY candesartan 8 mg tablet 8 mg DAILY hydrocodone-acetaminophen [hydrocodone-acetaminophen] 1 TABLET tablet 1 tab PO Q4H PRN PRN (Reason: Pain) 2 Days Qty: 10 0RF cephalexin 500 mg capsule 500 mg PO Q6 7 Days Qty: 28 0RF Primary Care Provider: Jermaine Miranda Referrals: Jermaine Miranda MD [Primary Care Provider] - Activity Restrictions/Additional Instructions: Use the prescriptions as prescribed. Do not operate anything under the influence of the Endocet as this is a narcotic. Return with worsening symptoms or concerns. Your CAT scan showed evidence of a kidney stone. No evidence of appendicitis. Print Language: Maltese Disposition Disposition: Home, Self Care
[2024-11-12 09:15] LABS: Absolute Lymphocyte Count 1.53 X10^3/uL (0.83-4.51); Absolute Neutrophil Count 3.1 X10^3/uL (2.0-7.7); Basophil# 0.03 X10^3/uL; Basophil% 0.6 % (0-1); Eosinophil# 0.06 X10^3/uL; Eosinophils% 1.2 % (0-5); Hematocrit 41.3 % (37-47); Lymphocyte # 1.53 X10^3/ul (0.83-4.51); Lymphocyte % 29.9 % (19-41); Mean Corp Hgb Conc 31.5 g/dL (32-36); Mean Corpuscular Hgb 23.8 pg (27.0-32.0); Mean Corpuscular Volume 75.6 fL (81-99); Mean Platelet Vol. 10.2 fl (6.2-12.0); Monocyte# 0.42 X10^3/uL; Monocyte% 8.2 % (0-10); NRBC Flagged by Analyzer 0 % (0-5); Neutrophil # 3.06 X10^3/uL (2.7-7.7); Neutrophil % 59.7 % (47-70); Platelet Count 331 K/mm3 (150-450); RBC Distribution Width CV 18.6 % (11.6-14.6); RBC Distribution Width SD 47.5 fl (35.1-43.9); Red Blood Count 5.46 M/mm3 (4.2-5.4); White Blood Count 5.1 K/mm3 (4.4-11.0)
[2024-11-12 09:38] LABS: ALB/GLOB Ratio 1.7 RATIO (0.9-2.4); AST(SGOT) 36 U/L (<=31); Alanine Aminotransfer ALT/SGPT 34 U/L (<=34); Albumin, Serum 4.6 g/dL (3.4-4.8); Alkaline Phosphatase 144 U/L (35-104); Anion Gap 14 (5-15); BUN 10 mg/dL (4-19); BUN/Creat Ratio 17.3 RATIO (10-20); Calcium 9.7 mg/dL (7.6-11.0); Chloride 101 mmol/L (96-108); Creatinine, Serum 0.57 mg/dL (0.70-1.20); EST Glomerular Filtration Rate 103 (>60); Estimated Creatinine Clearance 103.74 ml/min; Globulin 2.7 g/dL (2.2-4.2); Glucose 137 mg/dL (70-99); Lipase 19 U/L (13-75); Potassium 3.8 mmol/L (3.3-5.1); Protein, Total 7.3 g/dL (5.9-8.4); Sodium Level 139 mmol/L (133-145); Total Bilirubin 0.66 mg/dL (0.00-1.30)
--- NOTE | 2024-11-12 09:45 | CT_ITS ---
PROCEDURE: ABDOMEN/PELVIS W IV CONT ONLY REASON FOR EXAM: Right lower quadrant pain TECHNIQUE: Abdomen and pelvis CT with intravenous contrast. COMPARISON: None. FINDINGS: Lung bases: Clear Liver: Diffuse fatty infiltration. Gallbladder: Unremarkable. Spleen: Unremarkable. Pancreas: Diffuse fatty atrophy. Adrenals: Unremarkable. Kidneys: Mild right hydronephrosis and hydroureter with 3 mm obstructive calculus in the distal ureter. Bladder: Unremarkable. Reproductive Organs: Unremarkable. Bowel: Colonic diverticulosis without diverticulitis. Appendix: Normal. Lymph nodes: No suspicious lymph node enlargement. Vasculature: Mild diffuse atherosclerotic calcifications are noted. Peritoneum / Retroperitoneum: No ascites. No free air. Bones: Degenerative changes of the spine. CT/Abdomen/Pelvis W IV Cont ONLY IMPRESSION: 1. Mild right hydronephrosis and hydroureter with obstructive calculus in the distal ureter. 2. Hepatic steatosis 3. Colonic diverticulosis with no evidence of diverticulitis 4. Other findings as above One or more dose reduction techniques were used (e.g., Automated exposure contr ol, adjustment of the mA and/or kV according to patient size, use of iterative reconstruction technique). Reading Location: [facility]
[2024-11-12 10:37] LABS: Bacteria 0 SEEN /hpf (None Seen); Mucous, Urine 0 SEEN /hpf (<or=2+); White Blood Cells 0 SEEN /hpf (0-5)
[2024-11-12 10:39] LABS: Color, Urine Yellow (Yellow); Glucose, Dipstick Normal (Normal); Ketone-Dipstick Negative (Negative); Leukocyte Esterase-Dipstick Negative /ul (Negative); Nitrite-Dipstick Negative (Negative); Occult Blood-Urine Negative /ul (Negative); Protein-Dipstick Negative (Negative); Urine Bilirubin Dipstick Negative (Negative); Urine Clarity Sl. Cloudy (Clear); Urine Urobilinogen Normal (Normal)
[2024-11-12 10:45] LABS: Red Blood Cells-Urine 0 SEEN /hpf (0-5); Squamous Epithelial Cells - UA 0-5 SEEN /hpf (5-10)
[2024-11-12 10:55] VITALS: BP 117/71; PULSE 78; RESP 16; TEMP 36.9; O2SAT 98
== END 2024-11-12 11:30 | disposition home or self-care (01) ==
PROVIDERS: Emergency Provider Emergency Medicine; PCP Family Medicine; Visit Provider Emergency Medicine
DX: N13.2 Hydronephrosis with renal and ureteral calculous obstruction (principal); E11.9 Type 2 diabetes mellitus without complications; R11.2 Nausea with vomiting, unspecified; N13.4 Hydroureter; F17.290 Nicotine dependence, other tobacco product, uncomplicated; K76.0 Fatty (change of) liver, not elsewhere classified; K57.30 Diverticulosis of large intestine without perforation or abscess without bleeding
CPT/HCPCS: 74177; 80053; 81001; 83690; 85025; 93005; 96361; 96374; 96375; 99283; Q9967; J2405

== ENCOUNTER → 2024-12-02 | Outpatient (CLI) | payer MEDICARE, SELFPAY ==
[2024-12-02 07:06] LABS: ALB/GLOB Ratio 1.7 RATIO (0.9-2.4); AST(SGOT) 30 U/L (<=31); Alanine Aminotransfer ALT/SGPT 24 U/L (<=34); Albumin, Serum 4.3 g/dL (3.4-4.8); Alkaline Phosphatase 131 U/L (35-104); Anion Gap 11 (5-15); BUN 9 mg/dL (4-19); BUN/Creat Ratio 16.7 RATIO (10-20); Calcium,Total 9.2 mg/dL (7.6-11.0); Carbon Dioxide 25.5 mmol/L (21.0-32.0); Chloride 102 mmol/L (98-108); Creatinine, Serum 0.52 mg/dL (0.70-1.20); EST Glomerular Filtration Rate 105 (>60); Globulin 2.5 g/dL (2.2-4.2); Glucose 114 mg/dL (70-99); Potassium 3.6 mmol/L (3.3-5.1); Protein, Total 6.8 g/dL (5.9-8.4); Sodium Level 139 mmol/L (133-145); Total Bilirubin 0.37 mg/dL (0.00-1.30)
[2024-12-02 07:42] LABS: Erythrocyte Sedimentation Rate 2 mm/hr (0-30)
[2024-12-02 07:44] LABS: Hematocrit 37.7 % (37-47); Mean Corp Hgb Conc 31.8 g/dL (32-36); Mean Corpuscular Hgb 24.6 pg (27.0-32.0); Mean Corpuscular Volume 77.4 fL (81-99); Mean Platelet Vol. 10.1 fl (6.2-12.0); Platelet Count 303 K/mm3 (150-450); RBC Distribution Width CV 18.6 % (11.6-14.6); RBC Distribution Width SD 51.5 fl (35.1-43.9); Red Blood Count 4.87 M/mm3 (4.2-5.4); White Blood Count 5.6 K/mm3 (4.4-11.0)
[2024-12-02 08:50] LABS: CRP < 3.00 mg/L (0.0-3.0); Lipase 45 U/L (13-75)
[2024-12-02 10:25] LABS: Microalbumin,Random Urine 13.4 mg/L (NO RANGE EST.); Microalbumin:Creatinine Ratio 229.5 mg/g CRE
--- NOTE | 2024-12-02 14:30 | CT_ITS ---
EXAM: CT Abdomen and Pelvis With Intravenous Contrast CLINICAL INDICATION: RUQ PAIN, EPIGASTRIC PAIN AND RECENT HYDRONEPHROSIS - STAT TECHNIQUE: Axial computed tomography images of the abdomen and pelvis with intravenous contrast. This CT exam was performed using one or more of the following dose reduction techniques: automated exposure control, adjustment of the mA and/or kV according to patient size, and/or use of iterative reconstruction technique. COMPARISON: CT Abdomen Pelvis dated 11/12/2024 FINDINGS: LUNG BASES: Unremarkable. No mass. No consolidation. ABDOMEN: LIVER: Fatty infiltration of the liver. GALLBLADDER AND BILE DUCTS: Unremarkable. No calcified stones. No ductal dilation. PANCREAS: Unremarkable. No mass. No ductal dilation. SPLEEN: Unremarkable. No splenomegaly. ADRENALS: Unremarkable. No mass. KIDNEYS AND URETERS: Prominent right renal pelvis without obstructive uropathy. STOMACH AND BOWEL: Fecal retention in the colon consistent with constipation. No obstruction. No mucosal thickening. PELVIS: APPENDIX: No findings to suggest acute appendicitis. BLADDER: Unremarkable. No mass. REPRODUCTIVE: Unremarkable as visualized. ABDOMEN and PELVIS: INTRAPERITONEAL SPACE: Unremarkable. No free air. No significant fluid collection. BONES/JOINTS: Degenerative disc disease throughout the lumbar spine. Degenerative facet arthropathy throughout the lumbar spine, most prominent in the lower lumbar spine. No acute fracture. No dislocation. SOFT TISSUES: Umbilical hernia containing fat. VASCULATURE: Indwelling IVC filter. No abdominal aortic aneurysm. LYMPH NODES: Unremarkable. No enlarged lymph nodes. CT/Abdomen/Pelvis WITH Contrast IMPRESSION: 1. Prominent right renal pelvis without obstructive uropathy. 2. Umbilical hernia containing fat. 3. Fecal retention in the colon consistent with constipation. 4. Degenerative changes lumbar spine as described. Reading Location: [facility]
[2024-12-05 14:08] LABS: ANTINUCLEAR ANTIBODIES DIRECT Negative (Negative)
[2024-12-05 15:08] LABS: PROEL- A/G Ratio 1.6 (0.7-1.7); PROEL- Albumin 3.9 g/dL (2.9-4.4); PROEL- Alpha-1 Globulin 0.2 g/dL (0.0-0.4); PROEL- Alpha-2 Globulin 0.7 g/dL (0.4-1.0); PROEL- Gamma Globulin 0.6 g/dL (0.4-1.8); PROEL- Globulin, Total 2.5 g/dL (2.2-3.9); PROEL- TOTAL PROTEIN 6.4 g/dL (6.0-8.5); PROEL-M-Spike Not Observed g/dL (Not Observed)
== END | disposition home or self-care (01) ==
PROVIDERS: PCP Family Medicine; Referring Provider Family Medicine; Visit Provider Family Medicine
DX: R11.2 Nausea with vomiting, unspecified (principal)
CPT/HCPCS: 36415; 74177; 80053; 82043; 82570; 83690; 84165; 85027; 85652; 86038; 86140; Q9967

== ENCOUNTER → 2025-04-06 | Outpatient (CLI) | payer MEDICARE, SELFPAY ==
[2025-04-06 15:47] LABS: Creatinine, Urine (random) 19.10 mg/dL (28.00-217.00); Microalbumin,Random Urine < 12.0 mg/L (<20 mg/L)
[2025-04-06 15:56] LABS: AST(SGOT) 29 U/L (<=31); Alanine Aminotransfer ALT/SGPT 20 U/L (<=34); Albumin, Serum 4.2 g/dL (3.4-4.8); Alkaline Phosphatase 135 U/L (35-104); Anion Gap 15 (5-15); BUN 10 mg/dL (4-19); BUN/Creat Ratio 17.1 RATIO (10-20); Calcium,Total 9.5 mg/dL (7.6-11.0); Carbon Dioxide 23.0 mmol/L (21.0-32.0); Chloride 102 mmol/L (98-108); Globulin 2.5 g/dL (2.2-4.2); Glucose 202 mg/dL (70-99); Potassium 3.8 mmol/L (3.3-5.1)
== END | disposition home or self-care (01) ==
LOC: MTLAB 13:58
PROVIDERS: PCP Family Medicine; Referring Provider Family Medicine; Visit Provider Family Medicine
DX: E11.22 Type 2 diabetes mellitus with diabetic chronic kidney disease (principal); N18.9 Chronic kidney disease, unspecified
CPT/HCPCS: 36415; 80053; 82043; 82570; 83036

== ENCOUNTER 2025-04-24 17:31 | Emergency (ER) | payer MEDICARE, SELFPAY ==
[2025-04-24] VITALS (7 sets, daily range): BP systolic 128–165; BP diastolic 86–97; PULSE 65–87; RESP 16–18; TEMP 36.8; O2SAT 94–99; BMI 25.6
[2025-04-24] MEDS: 0.9% Normal Saline (1000mL) 1,000 ML 999 ML IV (18:27)
--- NOTE | 2025-04-24 18:35 | EX.ED.DYSGE1 ---
HPI History of Present Illness Chief Complaint: Headache Narrative Narrative: Patient is a 64-year-old female with past medical history of type 2 diabetes, MTHFR deficiency on warfarin, JONI, rheumatoid arthritis, migraine headache who presents to the emergency department chief complaint of headaches. Patient states that she has been having a headache ever since her basal cell surgery and notes that over the last 10 days it has worsened significantly. States that she has not seen a doctor about this she states that she tried to call her primary care physician and they could not get her in. Patient states that she has extreme pressure. Patient denies any head trauma or injuries. [facility] Medical History Basal cell carcinoma Diabetes type 2, controlled MTHFR (methylene THF reductase) deficiency and homocystinuria Rotator cuff arthropathy of left shoulder Osteoarthritis Rheumatoid arthritis Abdominal hernia JONI (obstructive sleep apnea) Home Medications ?Medication ?Instructions ?Recorded ?Last Taken ?Type calcium carbonate (Oyster Shell 500 mg PO DAILY@0800 04/25/14 Unknown History Calcium 500) potassium 99 mg tablet 99 mg PO DAILY 04/25/14 Unknown History warfarin 2 mg tablet (Jantoven) 4 mg PO QODAY 04/25/14 Unknown History folic acid 1 mg tablet 5 mg PO DAILY@0800 01/12/15 Unknown History metformin 500 mg tablet 500 mg PO BIDCM 01/12/15 Unknown History topiramate 25 mg tablet 25 mg PO BID ##60 01/13/15 Unknown Rx candesartan 8 mg tablet 8 mg DAILY 02/12/21 Unknown History hydrocodone-acetaminophen 5-325mg 1 tab PO Q4H PRN PRN Pain 2 days 02/12/21 Unknown Rx 5mg-325mg #10 TABLETS montelukast 10 mg tablet 10 mg DAILY 02/12/21 Unknown History nitroglycerin 0.4 mg sublingual 0.4 mg PRN PRN Angina 02/12/21 Unknown History tablet tramadol 50 mg tablet 50 mg TID PRN PRN Pain 02/12/21 Unknown History ondansetron 4 mg disintegrating 4 mg PO Q6H PRN nausea and 11/12/24 Unknown Rx tablet vomiting #20 tabs tamsulosin 0.4 mg capsule (Flomax) 0.4 mg PO DAILY #14 caps 11/12/24 Unknown Rx amlodipine 5 mg tablet 5 mg PO DAILY 04/24/25 Unknown History aripiprazole 2 mg tablet 2 mg PO DAILY 04/24/25 Unknown History atorvastatin 20 mg tablet 20 mg PO DAILY 04/24/25 Unknown History bupropion HCl 150 mg tablet,12 hr 150 mg PO BID 04/24/25 Unknown History sustained-release dulaglutide 0.75 mg/0.5 mL mg subcut QWEEK 04/24/25 Unknown History subcutaneous pen injector (Trulicity) pantoprazole 40 mg tablet,delayed 40 mg PO DAILY 04/24/25 Unknown History release sumatriptan succinate 50 mg tablet 50 mg PO 04/24/25 Unknown History Allergy/AdvReac Type Severity Reaction Status Date / Time albuterol Allergy Chest Verified 02/06/23 12:11 tightness celecoxib (From Celebrex) Allergy Other Verified 02/06/23 12:11 feathers Allergy Hives Verified 02/06/23 12:11 Surgical History H/O hernia repair Total knee replacement status History of hysterectomy for benign disease Social History Smoking Status: Current every day smoker tobacco type: e-cigarettes ROS ROS ED ROS Narrative Constitutional: Complains of headache denies any fevers or chills Eyes: Denies change in vision double vision blurry vision Cardiovascular: Denies chest pain or palpitations Respiratory: Denies coughing wheezing shortness of breath Abdomen: Denies abdominal pain or vomiting : Denies any urinary symptoms Neurological: Denies any numbness, weakness, tingling Musculoskeletal: Denies back pain Skin: Denies any rashes or lesions EXAM Physical Exam Narrative Exam Narrative: General: Patient was lying in bed resting comfortably with ice pack on the top of her head Head: Atraumatic, normocephalic Eyes: PERRL bilaterally, EOMI bilaterally, no conjunctival injection noted Neck: Soft, supple, trachea midline Cardiovascular: Regular rate and rhythm Respiratory: Clear to auscultation bilaterally Abdomen: Soft, nondistended, no tenderness to palpation Extremities: +5/5 strength noted in the bilateral upper and lower extremities, radial pulses +2/4 in the bilateral extremities Neurological: Patient following commands knew that she was at [facility] year is 2024. NIH of 0 GCS 15 Skin: Warm, dry contact no rashes lesions noted Const Vital Signs: 04/24/25 17:32 04/24/25 17:36 04/24/25 17:37 Temperature 98.2 F Temperature Source Oral Pulse Rate 87 85 82 Respiratory Rate 16 18 18 Blood Pressure 128/86 H 165/89 H 162/97 H Blood Pressure Mean 100 114 118 Pulse Ox 98 97 98 Oxygen Delivery Method Room Air Room Air 04/24/25 18:37 04/24/25 19:00 04/24/25 20:00 Temperature Temperature Source Pulse Rate 65 73 70 Respiratory Rate 18 18 18 Blood Pressure 155/94 H 129/87 H 128/86 H Blood Pressure Mean 114 101 100 Pulse Ox 99 94 99 Oxygen Delivery Method Room Air Room Air Room Air 04/24/25 20:19 Temperature 98.2 F Temperature Source Pulse Rate 70 Respiratory Rate 18 Blood Pressure 128/86 H Blood Pressure Mean 100 Pulse Ox 99 Oxygen Delivery Method MDM MDM MDM Narrative Medical decision making narrative: Patient is a 64-year-old female who presented to the emergency department chief complaint headache. On the differential diagnosis includes but not limited to intracranial mass, intracranial hemorrhage, migraine headache, hypertension. Once the workup is obtained reviewed she will be reevaluated. Patient given IV fluids Reglan and a gram of Tylenol. Patient's CBC reviewed showed no evidence leukocytosis white blood count normal at 6.8, he was 12.4, platelet count normal at 310. Patient sodium was 139, potassium normal 3.7, creatinine was 0.51 this appears to be around her baseline, AST and ALT are [address] head and brain without contrast showed no acute intracranial abnormality. On reevaluation the patient she states that she is feeling much better and like to go home at this point in time. Patient was advised to continue to use Tylenol for pain control as well as her sumatriptan for her migraine headaches. She is advised to return with worsening symptoms or other concerns. She is agreeable this plan as well as significant other bedside all question concerns answered she was discharged home in stable condition. Lab Data Labs: Laboratory Results - last 24 hr 04/24/25 18:39 WBC 6.8 RBC 5.05 Hgb 12.4 Hct 39.2 MCV 77.6 L MCH 24.6 L MCHC 31.6 L RDW Std Deviation 45.2 H RDW Coeff of Gilberto 16.1 H Plt Count 310 MPV 10.5 Immature Gran % (Auto) 0.300 Neut % (Auto) 58.1 Lymph % (Auto) 31.2 Valley % (Auto) 8.2 Eos % (Auto) 1.8 Baso % (Auto) 0.4 Absolute Neuts (auto) 4.0 Absolute Lymphs (auto) 2.13 Nucleated RBC % 0 Sodium 139 Potassium 3.7 Chloride 102 Carbon Dioxide 23.8 Anion Gap 13 BUN 14 Creatinine 0.51 L Estim Creat Clear Calc 112.20 Est GFR (MDRD) Non-Af 105 BUN/Creatinine Ratio 27.4 H Glucose 111 H Calcium 9.8 Total Bilirubin 0.27 AST 26 ALT 21 Alkaline Phosphatase 144 H Total Protein 6.9 Albumin 4.3 Globulin 2.6 Albumin/Globulin Ratio 1.6 Radiography Diagnostic Testing: Clinical Impression(s) from Imaging Studies Brain CT 04/24/25 18:55 IMPRESSION: No acute intracranial abnormality. Reading Location: [facility] Discharge Plan Triage Chief Complaint: Headache ED Provider: Matt Zapien Dx/Rx/DC Orders Clinical Impression: Headache, Gastroesophageal reflux disease, Hyperlipidemia, DM2 (diabetes mellitus, type 2) Prescriptions: No Action potassium 99 MG tablet 99 mg PO DAILY Patient Comments: supplement calcium carbonate [Oyster Shell Calcium 500] 500 MG tablet 500 mg PO DAILY@0800 Patient Comments: supplement warfarin [Jantoven] 2 MG tablet 4 mg PO QODAY Patient Comments: MOWEFR blood thinner metformin 500 MG tablet 500 mg PO BIDCM Patient Comments: diabetes folic acid 1 MG tablet 5 mg PO DAILY@0800 Patient Comments: SUPPLEMENT topiramate 25 MG tablet 25 mg PO BID Qty: 60 0RF Patient Comments: migraines tramadol 50 mg tablet 50 mg TID PRN PRN (Reason: Pain) Patient Comments: TAKE 1 TABLET EVERY 8 HOURS NEEDED FOR 90 DAYS nitroglycerin 0.4 mg tablet, sublingual 0.4 mg PRN PRN (Reason: Angina) Rx Instructions: x3 q 5 min montelukast 10 mg tablet 10 mg DAILY candesartan 8 mg tablet 8 mg DAILY hydrocodone-acetaminophen [hydrocodone-acetaminophen] 1 TABLET tablet 1 tab PO Q4H PRN PRN (Reason: Pain) 2 Days Qty: 10 0RF bupropion HCl 150 mg tablet sustained-release 12 hr 150 mg PO BID atorvastatin 20 mg tablet 20 mg PO DAILY sumatriptan succinate 50 mg tablet 50 mg PO amlodipine 5 mg tablet 5 mg PO DAILY pantoprazole 40 mg tablet,delayed release (DR/EC) 40 mg PO DAILY aripiprazole 2 mg tablet 2 mg PO DAILY Trulicity 0.75 mg/0.5 mL pen injector subcut QWEEK tamsulosin [Flomax] 0.4 mg capsule 0.4 mg PO DAILY Qty: 14 0RF ondansetron 4 mg tablet,disintegrating 4 mg PO Q6H PRN (Reason: nausea and vomiting) Qty: 20 0RF Primary Care Provider: Jermaine Miranda Referrals: Jermaine Miranda MD [Primary Care Provider] - Activity Restrictions/Additional Instructions: Your CT of your head did not show any acute findings your blood work did not show any acute findings either. Continue to stay hydrated. Return with worsening symptoms or any other concerns. Print Language: Arabic Disposition Disposition: Home, Self Care
--- NOTE | 2025-04-24 18:55 | CT_ITS ---
PROCEDURE: BRAIN/HEAD WITHOUT CONTRAST 04/24/2025 REASON FOR EXAM: HEADACHE, BACK RIGHT SIDE TECHNIQUE: BRAIN/HEAD WITHOUT CONTRAST Coronal and Sagittal reconstruction series were provided. One or more dose reduction techniques were used (e.g., Automated exposure control, adjustment of the mA and/or kV according to patient size, use of iterative reconstruction technique. RADIATION DOSE SUMMARY: CTDlvol: 47 mGy DLP: 943 mGycm COMPARISON: 02/24/2019. FINDINGS: Moderate global parenchymal atrophy. No evidence of acute hemorrhage or infarction. No extra-axial blood or fluid collections. The paranasal sinuses and mastoid air cells are clear. The calvarial vault and skull base are intact. CT/Brain/Head without Contrast IMPRESSION: No acute intracranial abnormality. Reading Location: [id number]
--- NOTE | 2025-04-24 18:55 | CT_ITS ---
PROCEDURE: BRAIN/HEAD WITHOUT CONTRAST 04/24/2025 REASON FOR EXAM: HEADACHE, BACK RIGHT SIDE TECHNIQUE: BRAIN/HEAD WITHOUT CONTRAST Coronal and Sagittal reconstruction series were provided. One or more dose reduction techniques were used (e.g., Automated exposure control, adjustment of the mA and/or kV according to patient size, use of iterative reconstruction technique. RADIATION DOSE SUMMARY: CTDlvol: 47 mGy DLP: 943 mGycm COMPARISON: 02/24/2019. FINDINGS: Moderate global parenchymal atrophy. No evidence of acute hemorrhage or infarction. No extra-axial blood or fluid collections. The paranasal sinuses and mastoid air cells are clear. The calvarial vault and skull base are intact. CT/Brain/Head without Contrast IMPRESSION: No acute intracranial abnormality. Reading Location: [id number]
[2025-04-24 19:16] LABS: Hematocrit 39.2 % (37-47); Hemoglobin 12.4 g/dL (12.0-15.0); Immature Granulocytes Count 0.020 X10^3/uL (0.0-0.0); Mean Corp Hgb Conc 31.6 g/dL (32-36); Mean Corpuscular Volume 77.6 fL (81-99); Mean Platelet Vol. 10.5 fl (6.2-12.0); NRBC Flagged by Analyzer 0 % (0-5); Platelet Count 310 K/mm3 (150-450); RBC Distribution Width CV 16.1 % (11.6-14.6); RBC Distribution Width SD 45.2 fl (35.1-43.9); Red Blood Count 5.05 M/mm3 (4.2-5.4); White Blood Count 6.8 K/mm3 (4.4-11.0)
[2025-04-24 19:41] LABS: AST(SGOT) 26 U/L (<=31); Alanine Aminotransfer ALT/SGPT 21 U/L (<=34); Albumin, Serum 4.3 g/dL (3.4-4.8); Alkaline Phosphatase 144 U/L (35-104); Anion Gap 13 (5-15); BUN 14 mg/dL (4-19); BUN/Creat Ratio 27.4 RATIO (10-20); Calcium,Total 9.8 mg/dL (7.6-11.0); Carbon Dioxide 23.8 mmol/L (21.0-32.0); Chloride 102 mmol/L (98-108); Estimated Creatinine Clearance 112.20 ml/min (50-250); Globulin 2.6 g/dL (2.2-4.2); Glucose 111 mg/dL (70-99); Potassium 3.7 mmol/L (3.3-5.1)
== END 2025-04-24 20:37 | disposition home or self-care (01) ==
PROVIDERS: Emergency Provider Emergency Medicine; PCP Family Medicine; Visit Provider Emergency Medicine
DX: R51.9 Headache, unspecified (principal); E11.9 Type 2 diabetes mellitus without complications; E78.5 Hyperlipidemia, unspecified; K21.9 Gastro-esophageal reflux disease without esophagitis; G47.33 Obstructive sleep apnea (adult) (pediatric); F17.290 Nicotine dependence, other tobacco product, uncomplicated
CPT/HCPCS: 70450; 80053; 85025; 96361; 96374; 99283; A4216

== ENCOUNTER → 2025-05-03 | Outpatient (CLI) | payer MEDICARE, SELFPAY ==
--- NOTE | 2025-05-03 10:07 | CDU_ITS ---
Reason For Study Reason For Study: Headache Rt. Velocities/BP Lt. Velocities/BP Prox CCA 121.1/26.1 cm/sec. Prox CCA 68.5/14.6 cm/sec. Mid CCA 91.6/20.1 cm/sec. Mid CCA 69.6/22.3 cm/sec. Dist CCA 65.2/22.3 cm/sec. Dist CCA 79.5/25.6 cm/sec. Prox ICA 67.4/21.2 cm/sec. Prox ICA 77.3/20.1 cm/sec. Mid ICA 66.3/23.4 cm/sec. Mid ICA 107.2/29.8 cm/sec. Dist ICA 82.8/32.2 cm/sec. Dist ICA 81.4/33.5 cm/sec. Rt. ICA/CCA = 0.90. Lt. ICA/CCA = 1.54. Prox ECA 93.8/16.8 cm/sec. Prox ECA 82.8/12.4 cm/sec. Rt. Vert. 48.7/11.3 cm/sec. Lt. Vert. 64.1/23.4 cm/sec. Right Extracranial There is intimal thickening but no significant atherosclerotic plaque noted in the right common carotid artery. There is heterogeneous, irregular atherosclerotic plaque noted in the right internal carotid artery. There is intimal thickening but no significant atherosclerotic plaque noted in the right external carotid artery. Antegrade flow is noted in the right vertebral artery. Left Extracranial There is intimal thickening but no significant atherosclerotic plaque noted in the left common carotid artery. There is intimal thickening but no significant atherosclerotic plaque noted in the left internal carotid artery. There is heterogeneous, irregular atherosclerotic plaque noted in the left external carotid artery. Antegrade flow is noted in the left vertebral artery. Procedure This is a Carotid Duplex examination using B-mode, color flow and specral Doppler. Carotid Duplex 25662. Exam performed in department. VL/Carotid Duplex Ultrasound Interpretation Summary Mild (<50%) stenosis right extracranial internal carotid. No significant athero sclerotic plaque or stenosis noted in the left internal carotid artery. Flow within the vertebral arteries is antegrade b ilaterally. Ordering Physician: Jermaine Miranda Referring Physician: Jermaine Miranda Performed By: Bibi Wallace RVT
== END | disposition home or self-care (01) ==
PROVIDERS: PCP Family Medicine; Referring Provider Family Medicine; Visit Provider Family Medicine
DX: R51.9 Headache, unspecified (principal); Z86.73 Personal history of transient ischemic attack (TIA), and cerebral infarction without residual deficits
CPT/HCPCS: 93880

== ENCOUNTER → 2025-07-10 | Outpatient (CLI) | payer MEDICARE, SELFPAY ==
[2025-07-10 10:22] LABS: Hematocrit 37.3 % (37-47); Hemoglobin 11.6 g/dL (12.0-15.0); Immature Granulocytes Count 0.010 X10^3/uL (0.0-0.0); Mean Corp Hgb Conc 31.1 g/dL (32-36); Mean Corpuscular Volume 79.0 fL (81-99); Mean Platelet Vol. 10.5 fl (6.2-12.0); NRBC Flagged by Analyzer 0 % (0-5); Platelet Count 295 K/mm3 (150-450); RBC Distribution Width CV 16.3 % (11.6-14.6); RBC Distribution Width SD 46.5 fl (35.1-43.9); Red Blood Count 4.72 M/mm3 (4.2-5.4); White Blood Count 4.9 K/mm3 (4.4-11.0)
[2025-07-10 10:36] LABS: AST(SGOT) 24 U/L (<=31); Alanine Aminotransfer ALT/SGPT 14 U/L (<=34); Albumin, Serum 4.2 g/dL (3.4-4.8); Alkaline Phosphatase 144 U/L (35-104); Anion Gap 10 (5-15); BUN 9 mg/dL (4-19); BUN/Creat Ratio 16.5 RATIO (10-20); Calcium,Total 9.1 mg/dL (7.6-11.0); Carbon Dioxide 27.1 mmol/L (21.0-32.0); Chloride 103 mmol/L (98-108); Globulin 2.4 g/dL (2.2-4.2); Glucose 98 mg/dL (70-99); Potassium 4.0 mmol/L (3.3-5.1)
== END | disposition home or self-care (01) ==
LOC: MTLAB 08:59
PROVIDERS: PCP Family Medicine; Referring Provider Family Medicine; Visit Provider Family Medicine
DX: R51.9 Headache, unspecified (principal); E11.22 Type 2 diabetes mellitus with diabetic chronic kidney disease; N18.9 Chronic kidney disease, unspecified
CPT/HCPCS: 36415; 80053; 83036; 85025